=== PATIENT | female | born 1965 | race Caucasian/White ===

== ENCOUNTER 2025-02-27 08:58 | Outpatient (CLI) | payer OTHER, SELFPAY ==
--- NOTE | 2025-02-27 | ECG_ITS ---
Test Date: 2025-02-27 09:53:48 Measurements Intervals [place] Rate: 66 P: 29 MT: 167 QRS: 0 QRSD: 89 T: 14 QT: 475 QTc: 498 Interpretive Statements SINUS RHYTHM PROLONGED QT INTERVAL No previous ECG available for comparison Electronically Signed On 02-27-2025 14:07:05 CDT by Gogo Cassidy M.D.
--- OUTSIDE RECORDS SUMMARY | 2025-02-27 09:27 | XMS_ITS | Encounter Summary ---
Author Organization [facility] Address [address] [place] [address] Care Team Providers Care Configuration Release Manager Name Role Phone Angus Elkins MD, Pradeep Ordoñez Primary Care Provider Encounter Details Date Type Department Care Team (Late st Contact Info) Description 12/25/2019 Lab Requisition [facility] [address] [place] [address] Babak Frank MD [address] [place] [address] Social History Tobacco Use Types Packs/Day Years Used Date Smoking Tobacco: Never Assessed Comments Unknown Sex and Gender Information Value Date Recorded Sex Assigned at Not on file Legal Sex Female 2:04 PM CAR SHAGGER Gender Identity Not on file Sexual Orientation Not on file documented as of this encounter Plan of Treatment Not on file documented as of this encounter Procedures Procedure Name Priority Date/Time Associated Diagnosis Comments DERMATOPATHOLOGY Routine 12/25/2019 12:0 0 AM CAR SHAGGER documented in this encounter Results * DERMATOPATHOLOGY (12/25/2019 12:00 AM CAR SHAGGER) Case Report Dermatopathology Report Case: [id number] Authorizing Provider: Babak Frank MD Collected: 12/25/2019 12:00 AM Ordering Location: [facility] Received: 12/25/2019 02:42 PM Pathologist: Jessica Parish MD Specimen: Skin, right upper arm 0 5:07 PM [facility] Final Diagnosis Specimen A. 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 Path# [id number] 0 5:07 PM [facility] Gross Description Specimen A: Received is one formalin filled container labeled with the patient's name and designated right upper arm. The specimen consists of a shave biopsy measuring 10x8x2 mm. Jar 0. 0 5:07 PM [facility] Microscopic Description Specimen A. SKIN, right upper arm: There is digitated epidermal hyperplasia, hypergranulosis, vacuolated granular layer cells, and compact hyperorthokeratosis . There is fibrosis of the papillary dermis associated with a superficial perivascular lymphohistiocytic infiltrate. A focal erosion is present. 0 5:07 PM [facility] Disclaimer An external and internal positive and negative controls are appropriate for the histochemical, immunohistochemical and immunofluorescence stain(s) in this case (if any), except where stated explicitly. The performance characteristics of the stain(s) cited in this report were developed and its performance characteristic determined by the Dermatopathology Laboratory at [facility], directed by Dr. Nahum Ogden. These tests need not be, and therefore are not, approved by the [place] Food and Drug Administration. The tests are used for clinical purposes. Billing Codes Specimen Charges Stain Charges 22591 1 0 5:07 PM [facility] Embedded Images 0 5:07 PM [facility] Pathology/Cytolog y TISSUE SPECIMEN FROM SKIN / Unknown 12/25/2019 12/25/2019 2:42 PM CAR SHAGGER us Babak Frank MD LAB - PATHOLOGY/CYTOLOGY ORDER DAX Final Result DERMATOPATHOLOGY LABORATORY [facility] - Department of Dermatology [address] [place] [address], [facility] [phone] documented in this encounter Visit Diagnoses Not on filedocumented in this encounter Additional Health Concerns Infection Onset Date Last Indicated Resolved Time COVID-19 Under Investigation 09/19/2021 09/19/2021 09/19/2021 12:01 PM CAR SHAGGER documented as of this encounter Care Teams Configuration Release Manager Relationship Specialty Start Date End Date Pradeep Greco Jr., MD [address] [place] [address] PCP - General 08/19/21 documented as of this encounter
--- OUTSIDE RECORDS SUMMARY | 2025-02-27 09:27 | XMS_ITS | Encounter Summary ---
Author Organization [facility] Address [address] [place] [address] Phone Care Team Providers Care Art History Instructor Name Role Phone Fransisco Clayton MD Unavailable [phone] Angus Elkins MD, Pradeep Donnelly Primary Care Provide r Jalen Bell MD Unavailable [phone] Encounter Details Date Type Department Care Team (Late st Contact Info) Description 01/29/2020 Orders Only [facility] Scanning, Provider Social History Tobacco Use Types Packs/Day Years Used Date Smoking Tobacco: Never Smokeless Tobacco: Never Alcohol Use Standard Drinks/Week Comments Not Currently 0 (1 standard drink = 0.6 oz pure alcohol) Previously dependent, last had a glass of champagne Thanksgiving 2018 PHQ-2 Answer Date Recorded PHQ-2 Score 1 10/10/2019 Comments No Sex and Gender Information Value Date Recorded Sex Assigned at Not on file Legal Sex Female 9:20 AM GLOBAL CREATIVE CHAIRMAN Gender Identity Not on file Sexual Orientation Not on file COVID-19 Exposure Response Date Recorded In the last month, have you been in contact with someone who was confirmed or suspected to have Coronavirus / COVID-19? No / Unsure 01/21/2020 3:30 PM CDT documented as of this encounter Plan of Treatment Not on file documented as of this encounter Procedures Procedure Name Priority Date/Time Associated Diagnosis Comments SCAN - LABS 01/29/2020 documented in this encounter Results * SCAN - LABS (01/29/2020) us Provider Scanning Final Result documented in this encounter Visit Diagnoses Not on filedocumented in this encounter Additional Health Concerns Infection Onset Date Last Indicated Resolved Time COVID: Suspected 10/01/2020 10/01/2020 10/01/2020 10:59 AM GLOBAL CREATIVE CHAIRMAN COVID: Suspected 10/01/2020 10/01/2020 10/02/2020 2:27 PM GLOBAL CREATIVE CHAIRMAN Respiratory Infection (DAGMAR), contact + droplet Comment:Automatically added due to negative COVID-19 result. 10/02/2020 10/02/2020 10/16/2020 3:0 7 AM GLOBAL CREATIVE CHAIRMAN C. difficile suspected 09/03/2024 09/10/202409/04 3:05 AM GLOBAL CREATIVE CHAIRMAN C. difficile suspected 09/10/2024 09/10/202409/10 7:56 PM GLOBAL CREATIVE CHAIRMAN documented as of this encounter Care Teams Art History Instructor Relationship Specialty Start Date End Date Pradeep Greco Jr., MD [address] [place] [address] PCP - General Internal Medicine 01/22/20 Fransisco Clayton MD [address] [place] [address] Consulting Physician Family Medicine 06/29/19 05/27/21 Jalen Bell MD [address] [place], [place] [address] Medical Oncologist/Senior Account Executive Hematology and Oncology 03/04/20 documented as of this encounter
--- OUTSIDE RECORDS SUMMARY | 2025-02-27 09:27 | XMS_ITS | Clinical Summary ---
Author Organization [facility] Address [address] [place] [address] Care Team Providers Care School Age Program Teacher Name Role Phone Angus Elkins MD, Pradeep Ordoñez Primary Care Provider Source Comments [facility],non-owned Affiliates and Associated Physician Practices is amultiple site organization consisting of ambulatory clinics and hospital sitesin [place], [place], [place] and [place]. This disclosure is being madepursuant to the Care Everywhere program and may not contain all information available regarding this patient. Last updated 18.[facility] Allergies Active Allergy Reactions Criticality Noted Date Comments Amitriptyline Other 07/19/2021 hallucinations Cefazolin Itching 07/21/2021 Nortriptyline Other 07/19/2021 hallucinations Sulfa Drugs Rash Medium 07/19/2021 Zolpidem Psychiatric High 12/01/2019 Medications * Be aware that medications may not be up to date on this document. Alwaysverify current medications with the patient. pantoprazole EC (PROTONIX) 40 MG tablet Take 1 (one) tablet by mouth 2 times daily Active magnesium oxide (MAG-OX) 400 MG tablet Take 1 (one) tablet by mouth 2 times daily Active Cyanocobalamin 1000 MCG Take 1 (one) tablet by mouth once daily Active calcium citrate 200 MG tablet Take 1 (one) tablet by mouth once daily Active B Complex Vitamins (B COMPLEX 1 PO) Take 1 tablet by mouth once daily Active Cholecalcifero l (VITAMIN D-3) 125 MCG (5000 UT) Take 1 (one) tablet by mouth once daily Active sertraline (ZOLOFT) 25 MG tabletIndicati ons:Generalize d Anxiety Disorder Take 1 (one) tablet by mouth once daily Reasons: Generalized Anxiety Disorder Active ALPRAZolam (XANAX) 0.5 MG tablet Take 1 (one) tablet by mouth 2 times daily as needed for Anxiety 28 tablet 1 Active ciprofloxacin (CIPRO) 500 MG tablet Take 1 (one) tablet by mouth once daily 30 tablet 1 Active lactulose (CHRONULAC) 10 GM/15ML solution Take 15 mL by mouth 3 times daily 1 Active nadolol (CORGARD) 20 MG tablet Take 0.5 (one-half) tablet by mouth once daily 0 1 Active XIFAXAN 550 MG tablet Take 1 (one) tablet by mouth 2 times daily 180 tablet 3 2 Active furosemide (LASIX) 40 MG tablet Take 1 (one) tablet by mouth at bedtime 90 tablet 3 2 Active spironolactone (ALDACTONE) 100 MG tablet Take 1 (one) tablet by mouth once daily 90 tablet 3 2 Active acetaminophen (Tylenol) 500 MG tablet Take 1 (one) tablet by mouth every 6 hours Maximum allowable Acetaminophen amount = 4 Grams (4000 mg) / 24 hours. 3 Active oxyCODONE, immediate release, (Roxicodone) 5 MG tabletIndicati ons:Closed fracture of right hip, sequela Take 1 (one) tablet by mouth every 4 hours as needed 20 tablet 3 Active cyclobenzaprin e (Flexeril) 10 MG tablet Take 1 (one) tablet by mouth 3 times daily as needed for Muscle Spasms 30 tablet 1 3 Active Additional Information Patient not taking.Reported on 06/15/2023 Active Problems Problem Noted Date Diagnosed Date Fall, sequela 04/04/2023 Closed fracture of right hip, sequela 04/04/2023 Liver cirrhosis secondary to SUAREZ 04/04/2023 Abdominal pain, generalized 09/18/2021 Urinary tract infection with hematuria 1 Fall 08/28/2021 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 (F LUZONE; FLULAVAL; FLUARIX; AFLURIA QUADRIVALENT; 6MO+), 0.5 ML (IIV4) 09/21/2021(Deferred: Patient Refused) Family History Medical History Relation Name Comments Diabetes; unknown type Father Seizures Mother Relation Name Status Comments Father Mother Social History Tobacco Use Types Packs/Day Years Used Date Smoking Tobacco: Never Smokeless Tobacco: Never Tobacco Cessation:Counseling Given: Not Answered Alcohol Use Standard Drinks/Week Comments Not Currently 0 (1 standard drink = 0.6 oz pur e alcohol) in past, quit 4 years ago AUDIT-C Answer Date Recorded Q1: How often do you have a drink containing alcohol? Never 04/05/2023 Q2: How many drinks containi ng alcohol do you have on a typical day when you are drinking? Patient does not drink Q3: How often do you have si x or more drinks on one occasion? Never 04/05/2023 Overall Financial Resource Strain (CARDIA) Answe r Date Recorded How hard is it for you to pa y for the very basics like food, housing, medical care, and heating? Not hard at all 04/05/2023 [facility] [place] [facility] Occupat ional Health - Occupational Stress Questionnaire Answer Date Recorded Do you feel stress - tense, restless, nervous, or anxious, or unable to sleep at night because your mind is troubled all the time - these days? Not at all 04/05/2023 Hunger Vital Sign Answer Date Recorded Within the past 12 months, y ou worried that your food would run out before you got the money to buy more. Never true 04/05/20 23 Within the past 12 months, t he food you bought just didn't last and you didn't have money to get more. Never true 04/05/2023 PRAPARE - Transportation Answer Date Re corded In the past 12 months, has l ack of transportation kept you from medical appointments or from getting medications? No 03/24 In the past 12 months, has l ack of transportation kept you from meetings, work, or from getting things needed for daily living? No 04/05/2023 Housing Stability Vital Sign Answer Jean-Paul e Recorded In the last 12 months, was t here a time when you were not able to pay the mortgage or rent on time? No 04/05/2023 In the last 12 months, how many places have you lived? 1 04/05/2023 In the last 12 months, was t here a time when you did not have a steady place to sleep or slept in a fpc (including now)? No 04/05/2023 Comments No Sex and Gender Information Value Date Recorded Sex Assigned at Not on file Legal Sex Female 2:04 PM HAZARDOUS MATERIALS HANDLER Gender Identity Not on file Sexual Orientation Not on file Last Filed Vital Signs Vital Sign Reading Time Taken Comments Blood Pressure 96/60 04/12/2023 2:54 PM CDT Pulse 78 04/12/2023 2:54 PM CDT Temperature 36.2 C (97.2 F) 04/12/2023 2:54 PM CDT Respiratory Rate 16 04/12/2023 2:54 PM CDT Oxygen Saturation 98% 04/12/2023 2:54 PM CDT Inhaled Oxygen Concentration 40% 04/05/2023 4 :25 PM CDT Weight 74.8 kg (165 lb) 07/27/2023 11:28 AM CDT Height 177.8 cm (5' 10 ) 07/27/2023 11:28 AM CDT Body Mass Index 23.68 07/27/2023 11:28 AM CDT Plan of Treatment Health Maintenance Due Date Last Done Comments COLOGUARD (AGES 45-75) - COLON CA SCREENING [address] COLONOGRAPHY - COLON CA SCREENING 1965 FIT - COLON CA SCREENING 1965 FLEX SIG - COLON CA SCREENING 1965 PAP SMEAR 1965 DTAP/TDAP/TD VACCINES (1 - Tdap) 1984 HEPATITIS B VACCINE (1 of 3 - 19+ 3-dose series) 1984 PNEUMOCOCCAL VACCINE 50+ (1 of 2 - PCV) 1984 ZOSTER VACCINE (1 of 2) 2015 COVID-19 VACCINE ( season) 2024 DEPRESSION SCREENING 10/24/2024 MAMMOGRAM 05/09/2025 05/09/2023, 12/22, 12/02/2019, Additional history exists INFLUENZA VACCINE (Season Ended) 2025 08/24/2022 LIPID TESTING 12/22/2026 12/22/2021 COLONOSCOPY - COLON CA SCREENING 07/03/2031 07/03/2021 Colorectal Cancer Screening 07/03/2031 HEPATITIS C SCREENING Completed 07/22/2021 HIV SCREENING Completed 07/22/2021 HIB VACCINE Aged Out No longer eligi ble based on patient's age to complete this topic HPV VACCINE Aged Out No longer eligi ble based on patient's age to complete this topic MENINGOCOCCAL (Group B) VACCINE SHARED DECISION-MAKING Aged Out No longer eligible based on patient's age to complete this topic MENINGOCOCCAL GROUPS A/C/Y/W VACCINE Aged Out No longer eligible based on patient's age to complete this topic Goals Goal Patient Goal Type Associated Problems Recent Progress Patient-Stated? Author Medication Management General On track( 022 12:42 PM HAZARDOUS MATERIALS HANDLER) No Chastity Black RN Note: Expected end date: Ongoing Interventions: Take all medications as prescribed Let your doctor know right away about any changes in your medications Make sure to request a refill of your medication at least one week prior to your last dose Mobility General No Vy Leblanc RN Note: Expected end date: The goal is to maintain or improve your mobility at the optimum level for you. Interventions: Outpatient PT ordered for ROM and strengthening;WBAT LLE. Medical Devices Implanted Type Area Fur Finisher Seamstress Device Identifier Shelf Expiration Date Model / Serial / Lot Pin Hlf 30mm 5mm Jtx Shrt Ti Ntrd Unlat Implanted:Qty: 3 on 07/20/2021 by Claus Martel MD at [facility] Left: Tibia [employer] [id number] / / 5mm X 35mm Short Pin Implanted:Qty: 1 on 07/20/2021 by Claus Martel MD at [facility] Left: Tibia [id number] / / Lateral Distal Fib Plate 3.5mm Implanted:Qty: 1 on 07/30/2021 by Claus Martel MD at [facility] Left: Leg [employer] [id number] / / Sub Bngf Ostst Xr Pelt Injector 5cc Implanted:Qty: 1 on 07/30/2021 by Claus Martel MD at [facility] Left: Leg [employer] 06/17/2028 [id number] / / [id number] Plate 3 Hl Lck Lopro Dist Blt Tip Tib Lt Implanted:Qty: 1 on 07/30/2021 by Claus Martel MD at [facility] Left: Leg [employer] [id number] / / Screw 3.5mm 42mm Ft Slf-Tap Hex Lopro Implanted:Qty: 1 on 07/30/2021 by Claus Martel MD at [facility] Left: Leg [employer] [id number] / / Screw 3.5mm 70mm T15 Lck Slf-Tap Tip Tpr Implanted:Qty: 5 on 07/30/2021 by Claus Martel MD at [facility] Left: Leg [employer] [id number] / / Screw 3.5mm 75mm 2.2mm Mldir Lck Sq Drv Implanted:Qty: 1 on 07/30/2021 by Claus Martel MD at [facility] Left: Leg [employer] [id number] / / Screw 3.5mm 46mm T15 Slf-Tap Lck Tpr Implanted:Qty: 1 on 07/30/2021 by Claus Martel MD at [facility] Left: Leg [employer] [id number] / / Screw 3.5mm 42mm Slf-Tap Cortx Evos Strl Implanted:Qty: 1 on 07/30/2021 by Claus Martel MD at [facility] Left: Leg [employer] [id number] / / Screw 3.5mm 40mm Slf-Tap Cortx Evos Strl Implanted:Qty: 1 on 07/30/2021 by Claus Martel MD at [facility] Left: Leg [employer] [id number] / / Screw 3.5mm 48mm Slf-Tap Cortx Evos Strl Implanted:Qty: 1 on 07/30/2021 by Claus Martel MD at [facility] Left: Leg [employer] [id number] / / 4.7 Locking Implanted:Qty: 1 on 07/30/2021 by Claus Martel MD at [facility] Left: Leg [employer] [id number] / / Intertan 10s 10mm X 18 Implanted:Qty: 1 on 08/28/2021 by Claus Kelly MD at [facility] Left: Femur [employer] 02/14/2031 [id number] / / Kit Screw 105mm 4.5mm Intrtn Troch Ti Implanted:Qty: 1 on 08/28/2021 by Claus Kelly MD at [facility] Left: Femur [employer] 11/10/2030 [id number] / / [id number] Screw 5mm 30mm Lopro Intnl Hex Fem Trgn Implanted:Qty: 1 on 08/28/2021 by Claus Kelly MD at [facility] Left: Femur [employer] 06/09/2031 [id number] / / [id number] Hip Stem Implanted:Qty: 1 on 04/05/2023 by Claus Martel MD at [facility] Right: Hip [employer] [id number] / / Neck Adjustment Sleeve Implanted:Qty: 1 on 04/05/2023 by Claus Martel MD at [facility] Right: Hip [employer] [id number] / / Head Compnent Implanted:Qty: 1 on 04/05/2023 by Claus Martel MD at [facility] Right: Hip [employer] [id number] / / Explanted Type Area Fur Finisher Seamstress Device Identifier Shelf Expiration Date Model / Serial / Lot Wire K 1.6mm 6in Hlf Bynt Pnt Ss Fx Explanted:Qty: 4 on 07/30/2021 by Claus Martel MD at [facility] Left: Leg [employer] [id number] / / Screw 3.5mm 40mm Ft Slf-Tap Hex Lopro Explanted:Qty: 1 on 07/30/2021 at [facility] Left: Leg [employer] [id number] / / Screw 3.5mm 48mm Slf-Tap Cortx Evos Strl Explanted:Qty: 1 on 07/30/2021 at [facility] Left: Leg [employer] [id number] / / Wire K 2mm 150mm Troc Pnt Ss Fx Strl Explanted:Qty: 1 on 07/30/2021 at [facility] Left: Leg [employer] [id number] / / Wire K 1.6mm 150mm Troc Pnt Ss Fx Strl Explanted:Qty: 1 on 07/30/2021 at [facility] Left: Leg [employer] [id number] / / Procedures Procedure Name Priority Date/Time Associated Diagnosis Comments HEPATITIS C AB SCREEN RFLX NAAT QUANT Routine 07/22/2021 11:40 AM CDT HIV-1 HIV-2 ANTIBODY + HIV P24 AG PANEL Routine 07/22/2021 11:40 AM CDT from Last 3 Months or Most Recently Relevant to Health Maintenance Results * HEPATITIS C AB SCREEN RFLX NAAT QUANT (07/22/2021 11:40 AM CDT) Hepatitis C Antibody Non-react diego Non-reac tive 07/22/2021 1:[address] [facility] Comment:Hepatitis C Antibody screen indicates no serologic evidence of past or current infection with Hepatitis C Virus. Patients with unexplained liver disease who are immunocompromised or suspected of having acute Hepatitis C infection may benefit from Nucleic Acid Test (SHAWN) for Hepatitis C Viral RNA to confirm Hepatitis C status. Blood BLOOD SPECIMEN / Unknown Lab Venipuncture / Unknown 07/22/2021 11:40 AM CDT 07/22/2021 11:43 AM CDT Anastasia Avila PA-C LAB - CHEMISTRY ORDERABLES Final Result Performing Organization Address City/[facility]/ZIP Co de Phone Number [address] [address], [place] [phone] * HIV-1 HIV-2 ANTIBODY + HIV P24 AG PANEL (07/22/2021 11:40 AM CDT) HIV Antigen/Antibod y 1 & 2 Non-reacti ve Non-react diego 07/22/2021 1:23 PM CDT [facility] Comment:Neither HIV-1 p24 An tigen nor HIV-1/HIV-2 Antibodies are detected. Blood BLOOD SPECIMEN / Unknown Lab Venipuncture / Unknown 07/22/2021 11:40 AM CDT 07/22/2021 11:43 AM CDT Anastasia Avila PA-C LAB - CHEMISTRY ORDERABLES Final Result Performing Organization Address City/[facility] Co de Phone Number [address] [address], [place] [phone] from Last 3 Months or Most Recently Relevant to Health Maintenance Insurance WORKERS COMP Advance Directives * Full Code (Latest Code Status on File) Date Activated Date Inactivated Comments 04/04/2023 8:58 PM 04/12/2023 8:00 PM * Full Code Date Activated Date Inactivated Comments 09/25/2021 1:45 AM 09/28/2021 4:48 PM * Full Code Date Activated Date Inactivated Comments 09/18/2021 11:12 PM 09/24/2021 5:33 PM * Full Code Date Activated Date Inactivated Comments 07/20/2021 12:28 AM 08/01/2021 3:00 PM Care Teams School Age Program Teacher Relationship Specialty Start Date End Date Pradeep Greco Jr., MD [address] [place] [address] PCP - General 08/19/21
--- OUTSIDE RECORDS SUMMARY | 2025-02-27 09:27 | XMS_ITS | Encounter Summary ---
Author Organization [facility] Facility Care Team Providers Care Operations Supervisor 2Nd Shift Name Role Phone Yolande Mckeon Primary Care Provider [phone] Fransisco Clayton MD Unavailable + [phone] Angus Elkins MD, Pradeep Donnelly Primary Care Provide r Jalen Bell MD Unavailable [phone] Encounter Details Date Type Department Care Team (Latest Contact Info) Description 11/09/2016 Orders Only [facility] CLINCONV ProviderLu MD [address] [place] [address] Social History Tobacco Use Types Packs/Day Years Used Date Smoking Tobacco: Never Assessed Comments Unknown Sex and Gender Information Value Date Recorded Sex Assigned at Not on file Legal Sex Female 9:20 AM FABRICATION TECHNICIAN Gender Identity Not on file Sexual Orientation Not on file documented as of this encounter Plan of Treatment Not on file documented as of this encounter Procedures Procedure Name Priority Date/Time Associated Diagnosis Comments COLONOSCOPY - SCAN 11/09/2016 12 :00 AM FABRICATION TECHNICIAN documented in this encounter Results * COLONOSCOPY - SCAN (11/09/2016 12:00 AM FABRICATION TECHNICIAN) Narrative 11/09/2016 12:00 AM FABRICATION TECHNICIAN Ordered by an unspecified provider. us Historical Provider Final Res ult documented in this encounter Visit Diagnoses Not on filedocumented in this encounter Additional Health Concerns Infection Onset Date Last Indicated Resolved Time COVID: Suspected 10/01/2020 10/01/2020 10/01/2020 10:59 AM FABRICATION TECHNICIAN COVID: Suspected 10/01/2020 10/01/2020 10/02/2020 2:27 PM FABRICATION TECHNICIAN Respiratory Infection (DAGMAR), contact + droplet Comment:Automatically added due to negative COVID-19 result. 10/02/2020 10/02/2020 10/16/2020 3:0 7 AM FABRICATION TECHNICIAN C. difficile suspected 09/03/2024 09/10/202409/04 3:05 AM FABRICATION TECHNICIAN C. difficile suspected 09/10/2024 09/10/202409/10 7:56 PM FABRICATION TECHNICIAN documented as of this encounter Care Teams Operations Supervisor 2Nd Shift Relationship Specialty Start Date End Date Yolande Mckeon PA [address] [place] [address] PCP - General 01/06/17 01/21/20 Pradeep Greco Jr., MD [address] [place] [address] PCP - General Internal Medicine 01/22/20 Fransisco Clayton MD [address] [place] [address] Consulting Physician Family Medicine 06/29/19 05/27/21 Jalen Bell MD [address] [place] [address] Medical Oncologist/Executive Vp Hematology and Oncology 03/04/20 documented as of this encounter
--- OUTSIDE RECORDS SUMMARY | 2025-02-27 09:27 | XMS_ITS | Clinical Summary ---
Author Organization [facility] Address [address] [place] [address] Care Team Providers Care Digital Music Instructor Name Role Phone Angus Elkins MD, Pradeep Martino Primary Care Pro vider Allergies Active Allergy Reactions Criticality Noted Date Comments Zolpidem Hallucinations High 12/01/2019 Amitriptyline Hallucinations Medium 10/02/2019 Nortriptyline Hallucinations High 01/31/2019 Hallucinations Sulfa Antibiotics Hives,Other (see comment),Rash Medium 01/26/2016 Reaction: HIVES;, Medications ALPRAZolam 1 MG tablet Take 1 mg by mouth 2 (two) times daily as needed. Active furosemide 40 MG tablet Take 40 mg by mouth 2 (two) times daily. 80 mg in am 40 mg at hs Active magnesium oxide 400 (241.3 Mg) MG tablet Take 400 mg by mouth 2 (two) times daily. Active nadolol 20 MG tablet Take 10 mg by mouth daily. Active pantoprazole EC 40 MG tablet Take 40 mg by mouth 2 (two) times a day. Active potassium chloride CR 20 MEQ tablet Take 20 mEq by mouth daily. Active spironolactone 100 MG tablet Take 100 mg by mouth daily. Active vitamin B-12 (CYANOCOBALAMIN) 1000 mcg tablet Take 1,000 mcg by mouth daily. Active Cholecalciferol (VITAMIN D3) 50 MCG (2000 UT) Tab Take 1 tablet by mouth daily. Active Calcium Carbonate (CALCIUM 500 OR) Take 600 mg by mouth daily. Active Probiotic Product (ALIGN OR) Take 1 tablet by mouth daily. Active oxyCODONE-acetam inophen (PERCOCET) 5-325 MG tabletIndication s:Acute Pain < 3 Day Supply Take 1 tablet by mouth every 6 (six) hours as needed for Pain. Indications : Acute Pain < 3 Day Supply 10 tablet 08/11/2021 Active sertraline (ZOLOFT) 50 MG tablet 10/24/2023 Active traMADol (ULTRAM) 50 MG tabletIndication s:Acute Pain < 7 Day Supply Take 1 tablet (50 mg total) by mouth 2 (two) times daily as needed for Pain. Indications : Acute Pain < 7 Day Supply 14 tablet 02/25/2024 Active Active Problems Problem Noted Date Diagnosed Date GI bleed 12/02/2019 Anemia 12/01/2019 Heart murmur 11/26/2019 Overview (12/01/2019): Last Assessment & Plan: Referral to cardio. Need echo. Change in heart murmur BMI 28.0-28.9,adult 10/29/2019 Overview (12/01/2019): Last Assessment & Plan: Educated patient on healthy diet/exercise plan. Exercise 150min-300min per week of moderate intensity. Diet: good, healthy protein (eggs, nuts, peanut butter, chicken, fish, turkey, less pork/beef), lots of vegetables, less carbohydrates and less sugar. Long QT syndrome 10/22/2019 Overview (12/01/2019): Last Assessment & Plan: Referral cardio Decompensated hepatic cirrhosis (CMS/HCC [facility]/HCC ) 10/19/2019 Overview (12/01/2019): Last Assessment & Plan: Repeat labs today. Updated meds list reviewed with pt. Low sodium diet. History of palpitations 10/19/2019 Overview (12/01/2019): Last Assessment & Plan: chart hx of AFib but patient unfamiliar with this term - telemetry monitoring while here - continue metop XL 25mg CAROLYNE (obstructive sleep apnea) 10/19/2019 Overview (12/01/2019): Last Assessment & Plan: CPAP - does not known home settings Hypoalbuminemia 10/10/2019 Insomnia due to other mental disorder 01/05/2019 Iron deficiency anemia 01/05/2019 Overview (12/01/2019): Last Assessment & Plan: Recheck labs Varices, esophageal ([facility]) 01/30/2018 Vitamin D deficiency 10/07/2017 Alcohol dependence in remission ([facility] ) 08/01/2017 Overview (12/01/2019): Last Assessment & Plan: Counseled pt again she needs to avoid all alcohol. Irritable bowel syndrome with constipation 08/01 Overview (12/01/2019): Last Assessment & Plan: I suspect this is the cause of her abdominal complaints. Trial of amitriptyline 25 mg q.h.s.. She previously had hallucinations while on nortriptyline. If the symptoms recur, she will call the office for additional recommendations. I encouraged her to use MiraLax intermittently for constipation. There is no evidence of bowel obstruction. Depression, major, recurrent, moderate 7 Overview (12/01/2019): Last Assessment & Plan: Improved. Generalized anxiety disorder 03/26/2016 Overview (12/01/2019): Last Assessment & Plan: Home regimen: xanax 1mg po BID PRN with klonopin 1mg po qpm for insomnia and panic attacks (which she reports are frequent at night time). Buproprion 75mg po qpm - hepatically dose xanax to 0.25mg po BID PRN for short acting relief, dc klonopin 1mg po qpm (contraindicated) - will order lorazepam 0.5mg po qpm PRN insomnia/panic attack - consolidate this regimen as patient tolerates - buproprion 75mg qpm Hyponatremia 03/26/2016 Overview (12/01/2019): Last Assessment & Plan: 2/2 hypervolemia from cirrhosis - fluid restrict 1.5L, 2gm sodium restriction Nonalcoholic steatohepatitis (SUAREZ) 01/26/2016 Overview (12/01/2019): Last Assessment & Plan: F/u with dr barrios Panic attack 01/26/2016 Alcoholic cirrhosis of liver with ascites (CMS/H CC [facility]) 01/23/2016 Overview (12/01/2019): Last Assessment & Plan: Continue to avoid all alcohol. F/u with Dr. Barrios treated in ED with Large Volume paracentesis 4 L Last Assessment & Plan: Improved, continue to monitor Asthma ([facility]) 01/23/2016 Essential hypertension 01/23/2016 Overview (12/01/2019): Last Assessment & Plan: B/p still low, will continue to monitor. Referral cardiology for change in heart murmur Portal hypertension ([facility]) 01/23/2016 Overview (12/01/2019): Last Assessment & Plan: Referral cardio Family History Medical History Relation Comments Heart Disease Father Breast Cancer Mother Cancer Mother Heart Disease Mother Anemia Neg Hx Relation Status Comments Father Mother Alive Social History Tobacco Use Types Packs/Day Years Used Date Smoking Tobacco: Never Passive Smoke Exposure: Never Smokeless Tobacco: Never Tobacco Cessation:Counseling Given: Not Answered Alcohol Use Standard Drinks/Week Comments Not Currently 0 (1 standard drink = 0.6 oz pure alcohol) never was a big drinker , h/o alcoholic cirrhosis AUDIT-C Answer Date Recorded Frequency of Alcohol Consumption Never 12/01/2019 Average Number of Drinks Not on file 020 Frequency of Binge Drinking Not on file 05/2020 Exercise Vital Sign Answer Date Recorde d Days of Exercise per Week 0 days 2019 Minutes of Exercise per Session Not asked 12/01/2019 Comments No Sex and Gender Information Value Date Recorded Sex Assigned at Not on file Legal Sex Female 7:10 PM CDT Gender Identity Not on file Sexual Orientation Not on file Last Filed Vital Signs Vital Sign Reading Time Taken Comments Blood Pressure 110/57 02/25/2024 6:56 PM CDT Pulse 67 02/25/2024 6:56 PM CDT Temperature 36.3 C (97.4 F) 02/25/2024 6:56 PM CDT Respiratory Rate 20 02/25/2024 6:56 PM CDT Oxygen Saturation 100% 02/25/2024 6:56 PM CDT Inhaled Oxygen Concentration - - Weight 81.6 kg (180 lb) 02/25/2024 6:56 PM CDT Height 177.8 cm (5' 10 ) 02/25/2024 6:56 PM CDT Body Mass Index 25.83 02/25/2024 6:56 PM CDT Plan of Treatment Health Maintenance Due Date Last Done Comments Cervical Cancer Screening Pa p Smear (Age 30 to 64) Every 3 Years 1965 Colorectal Cancer Screening Colonoscopy (10 Years) 1965 Annual Physical 1968 Pneumococcal Vaccine: 50+ Years (1 of 2 - PCV) 1984 Cervical Cancer Screening Pa p with HPV Testing (Age 30 to 64) Every 5 Years 1995 Cervical Cancer Screening with HPV 1995 Mammogram Screening 2005 Zoster Vaccines (1 of 2) 2015 COVID-19 Vaccine (1 - 2023-2 5 season) 2024 PHQ-2 (Physician [place]) 10/24/2024 DTaP, Tdap and Td Vaccines ( 3 - Td or Tdap) 12/28/2033 12/29/2023, 03/27/2016 Colorectal Cancer Screening FIT/FOBT (1 Year) Discontinued 12/01/2019 Hepatitis C Completed 07/22/2021 Meningococcal B Vaccine Aged Out No l onger eligible based on patient's age to complete this topic Meningococcal Vaccine Aged Out No manisha dino eligible based on patient's age to complete this topic RSV Immunizations Under 20 Months Aged Out No longer eligible based on patient's age to complete this topic Procedures Procedure Name Priority Date/Time Associated Diagnosis Comments OCCULT BLOOD, FECES STAT 12/01/2019 8 :38 PM UKE DRIVER from Last 3 Months or Most Recently Relevant to Health Maintenance Results * OCCULT BLOOD, FECES (12/01/2019 8:38 PM UKE DRIVER) OCCULT BLOOD FECAL POSITIVE 12/01/2019 8:51 PM UKE DRIVER [facility] STOOL SPECIMEN / Unknown 12/01/2019 8:38 PM UKE DRIVER Liu Blancas PA-C BODY FLUIDS AND STOOLS CRISPIN MUNSON Final Result [facility] [address] [place] [address], [place] [phone] from Last 3 Months or Most Recently Relevant to Health Maintenance Insurance Advance Directives * Full Code (Latest Code Status on File) Date Activated Date Inactivated Comments 12/01/2019 8:42 PM 12/03/2019 12:01 AM Care Teams Digital Music Instructor Relationship Specialty Start Date End Date Pradeep Greco Jr., MD PCP - General HOSPITALIST 09/17/20
--- OUTSIDE RECORDS SUMMARY | 2025-02-27 09:27 | XMS_ITS | Encounter Summary ---
Author Organization [facility] Facility Care Team Providers Care Dry Mop Maker Name Role Phone Yolande Mckeon Primary Care Provider [phone] Fransisco Clayton MD Unavailable + [phone] Angus Elkins MD, Pradeep Donnelly Primary Care Provide r Jalen Bell MD Unavailable [phone] Encounter Details Date Type Department Care Team (Latest Contact Info) Description 05/23/2017 Orders Only [facility] CLINCONV Provider, MD Lu [address] [place] [address] Social History Tobacco Use Types Packs/Day Years Used Date Smoking Tobacco: Never Assessed Comments Unknown Sex and Gender Information Value Date Recorded Sex Assigned at Not on file Legal Sex Female 9:20 AM MAINTENANCE INSPECTOR Gender Identity Not on file Sexual Orientation Not on file documented as of this encounter Plan of Treatment Not on file documented as of this encounter Procedures Procedure Name Priority Date/Time Associated Diagnosis Comments SCAN - LABS 05/23/2017 12:00 AM CDT documented in this encounter Results * SCAN - LABS (05/23/2017 12:00 AM CDT) Narrative 05/23/2017 12:00 AM CDT Ordered by an unspecified provider. us Historical Provider Final Res ult documented in this encounter Visit Diagnoses Not on filedocumented in this encounter Additional Health Concerns Infection Onset Date Last Indicated Resolved Time COVID: Suspected 10/01/2020 10/01/2020 10/01/2020 10:59 AM MAINTENANCE INSPECTOR COVID: Suspected 10/01/2020 10/01/2020 10/02/2020 2:27 PM MAINTENANCE INSPECTOR Respiratory Infection (DAGMAR), contact + droplet Comment:Automatically added due to negative COVID-19 result. 10/02/2020 10/02/2020 10/16/2020 3:0 7 AM MAINTENANCE INSPECTOR C. difficile suspected 09/03/2024 09/10/202409/04 3:05 AM MAINTENANCE INSPECTOR C. difficile suspected 09/10/2024 09/10/202409/10 7:56 PM MAINTENANCE INSPECTOR documented as of this encounter Care Teams Dry Mop Maker Relationship Specialty Start Date End Date Yolande Mckeon PA [address] [place] [address] PCP - General 01/06/17 01/21/20 Pradeep Greco Jr., MD [address] [place] [address] PCP - General Internal Medicine 01/22/20 Fransisco Clayton MD [address] [place] [address] Consulting Physician Family Medicine 06/29/19 05/27/21 Jalen Bell MD [address] [place] [address] Medical Oncologist/Spindle Sander Hematology and Oncology 03/04/20 documented as of this encounter
--- OUTSIDE RECORDS SUMMARY | 2025-02-27 09:27 | XMS_ITS | Encounter Summary ---
Author Organization [facility] Facility Care Team Providers Care Land Acquisition Manager Name Role Phone Yolande Mckeon Primary Care Provider [phone] Fransisco Clayton MD Unavailable + [phone] Angus Elkins MD, rPadeep Donnelly Primary Care Provide r Jalen Bell MD Unavailable [phone] Encounter Details Date Type Department Care Team (Latest Contact Info) Description 03/12/2016 Orders Only [facility] CLINCONV ProviderLu MD [address] [place] [address] Social History Tobacco Use Types Packs/Day Years Used Date Smoking Tobacco: Never Assessed Comments Unknown Sex and Gender Information Value Date Recorded Sex Assigned at Not on file Legal Sex Female 9:20 AM INNER DIAMETER GRINDER TOOL Gender Identity Not on file Sexual Orientation Not on file documented as of this encounter Plan of Treatment Not on file documented as of this encounter Procedures Procedure Name Priority Date/Time Associated Diagnosis Comments SCAN - LABS 03/12/2016 12:00 AM CDT SCAN - LABS 03/12/2016 12:00 AM CDT documented in this encounter Results * SCAN - LABS (03/12/2016 12:00 AM CDT) Narrative 03/12/2016 12:00 AM CDT Ordered by an unspecified provider. Historical Provider Final Res ult * SCAN - LABS (03/12/2016 12:00 AM CDT) Narrative 03/12/2016 12:00 AM CDT Ordered by an unspecified provider. Historical Provider Final Res ult documented in this encounter Visit Diagnoses Not on filedocumented in this encounter Additional Health Concerns Infection Onset Date Last Indicated Resolved Time COVID: Suspected 10/01/2020 10/01/2020 10/01/2020 10:59 AM INNER DIAMETER GRINDER TOOL COVID: Suspected 10/01/2020 10/01/2020 10/02/2020 2:27 PM INNER DIAMETER GRINDER TOOL Respiratory Infection (DAGMAR), contact + droplet Comment:Automatically added due to negative COVID-19 result. 10/02/2020 10/02/2020 10/16/2020 3:0 7 AM INNER DIAMETER GRINDER TOOL C. difficile suspected 09/03/2024 09/10/202409/04 3:05 AM INNER DIAMETER GRINDER TOOL C. difficile suspected 09/10/2024 09/10/202409/10 7:56 PM INNER DIAMETER GRINDER TOOL documented as of this encounter Care Teams Land Acquisition Manager Relationship Specialty Start Date End Date Yolande Mckeon PA [address] [place] [address] PCP - General 01/06/17 01/21/20 Pradeep Greco Jr., MD [address] [place], [place] [address] PCP - General Internal Medicine 01/22/20 Fransisco Clayton MD [address] [place], [place] [address] Consulting Physician Family Medicine 06/29/19 05/27/21 Jalen Bell MD [address] [place], [place] [address] Medical Oncologist/Family Medicine Chair Hematology and Oncology 03/04/20 documented as of this encounter
--- OUTSIDE RECORDS SUMMARY | 2025-02-27 09:27 | XMS_ITS | Encounter Summary ---
Author Organization [facility] Care Team Providers Care Laboratory Monitor Name Role Phone Yolande Mckeon Primary Care Provider [phone] Fransisco Clayton MD Unavailable + [phone] Angus Elkins MD, Pradeep Donnelly Primary Care Provide r Jalen Bell MD Unavailable [phone] Encounter Details Date Type Department Care Team (Latest Contact Info) Description 08/12/2017 Orders Only [facility] CLINCONV ProviderLu MD [address] [place] [address] Social History Tobacco Use Types Packs/Day Years Used Date Smoking Tobacco: Never Comments Unknown Sex and Gender Information Value Date Recorded Sex Assigned at Not on file Legal Sex Female 9:20 AM FIRE CONTROL TECHNICIAN G Gender Identity Not on file Sexual Orientation Not on file documented as of this encounter Plan of Treatment Not on file documented as of this encounter Procedures Procedure Name Priority Date/Time Associated Diagnosis Comments PROCEDURE - RESULT 08/12/2017 12 :00 AM CDT documented in this encounter Results * PROCEDURE - RESULT (08/12/2017 12:00 AM CDT) Narrative 08/12/2017 12:00 AM CDT Ordered by an unspecified provider. us Historical Provider Final Res ult documented in this encounter Visit Diagnoses Not on filedocumented in this encounter Additional Health Concerns Infection Onset Date Last Indicated Resolved Time COVID: Suspected 10/01/2020 10/01/2020 10/01/2020 10:59 AM FIRE CONTROL TECHNICIAN G COVID: Suspected 10/01/2020 10/01/2020 10/02/2020 2:27 PM FIRE CONTROL TECHNICIAN G Respiratory Infection (DAGMAR), contact + droplet Comment:Automatically added due to negative COVID-19 result. 10/02/2020 10/02/2020 10/16/2020 3:0 7 AM FIRE CONTROL TECHNICIAN G C. difficile suspected 09/03/2024 09/10/202409/04 3:05 AM FIRE CONTROL TECHNICIAN G C. difficile suspected 09/10/2024 09/10/202409/10 7:56 PM FIRE CONTROL TECHNICIAN G documented as of this encounter Care Teams Laboratory Monitor Relationship Specialty Start Date End Date Yolande Mckeon PA [address] [place] [address] PCP - General 01/06/17 01/21/20 Pradeep Greco Jr., MD [address] [place] [address] PCP - General Internal Medicine 01/22/20 Fransisco Clayton MD [address] [place] [address] Consulting Physician Family Medicine 06/29/19 05/27/21 Jalen Bell MD [address] [place] [address] Medical Oncologist/Material Attendant Hematology and Oncology 03/04/20 documented as of this encounter
--- OUTSIDE RECORDS SUMMARY | 2025-02-27 09:27 | XMS_ITS | Encounter Summary ---
Author Organization [facility] Address [address] [place] [address] Care Team Providers Care Toolroom Checker Name Role Phone Angus Elkins MD, Pradeep Martino Primary Care Pro vider Encounter Details Date Type Department Care Team (Late st Contact Info) Description 09/17/2020 Prep for Procedure [facility] Pre-Admission Testing [address] [place] [address] Senthil Otoole MD [address] [place] [id number] Social History Tobacco Use Types Packs/Day Years [...] have Coronavirus / COVID-19? No / Unsure 09/17/2020 9:29 AM NUCLEAR SCIENTIST documented as of this encounter Functional Status * RETIRED Are you deaf or do you have serious difficulty hearing Answer Date of Assessment Author Status No 12/01/2019 10:39 PM NUCLEAR SCIENTIST Acti ve * RETIRED Are you blind or do you have serious difficulty seeing, even when wearing glasses? Answer Date of Assessment Author Status No 12/01/2019 10:39 PM NUCLEAR SCIENTIST Acti ve * Do you have serious difficulty walking or climbing stairs? Answer Date of Assessment Author Status No 12/01/2019 10:39 PM NUCLEAR SCIENTIST Consuelo Wheatley R N Active * Do you have difficulty dressing or bathing? Answer Date of Assessment Author Status No 12/01/2019 10:39 PM NUCLEAR SCIENTIST Consuelo Wheatley R N Active * Because of a physical, mental, or emotional condition, do you have difficulty doing errands alone such as visiting a doctor's office or shopping? Answer Date of Assessment Author Status No 12/01/2019 10:39 PM NUCLEAR SCIENTIST Consuelo Wheatley R N Active documented as of this encounter Mental Status * Because of a physical, mental, or emotional condition, do you have serious difficulty concentrating, remembering, or making decisions? Answer Entry Date Author Status No 12/01/2019 10:39 PM NUCLEAR SCIENTIST Consuelo Wheatley R N Active documented in this encounter Plan of Treatment Not on file documented as of this encounter Results * PRE-SURGICAL/PRE-PROCEDURE CORONAVIRUS (COVID 19) (09/21/2020 9:05 AM NUCLEAR SCIENTIST) CORONAVIRUS SARS COV 2 PCR (RESP) NOT DETECTED NOT DETECTED 09/22/2020 3:01 PM NUCLEAR SCIENTIST [facility] Comment: A Not Detected (negative) test result for this test means that SARS- CoV-2 RNA was not present in the specimen above the limit of detection. A negative result does not rule out the possibility of COVID-19 and should not be used as the sole basis for treatment or patient management decisions. If COVID-19 is still suspected, based on exposure history together with other clinical findings, re-testing should be considered in consultation with public health authorities. Laboratory test results should always be considered in the context of clinical observations and epidemiological data in making a final diagnosis and patient management decisions. Please review the Fact Sheets and FDA authorized labeling available for health care providers and patients using the following websites: https://www.[email or web address]/home/Covid-19/HCP/NAAT/fact-sheet2 https://www.[employer]iModel/home/Covid-19/Patients/NAAT/ fact-sheet2 This test has been authorized by the FDA under an Emergency Use Authorization (EUA) for use by authorized laboratories. Due to the current public health emergency, [facility] is receiving a high volume of samples from a wide variety of swabs and media for COVID-19 testing. In order to serve patients during this public health crisis, samples from appropriate clinical sources are being tested. Negative test results derived from specimens received in non-commercially manufactured viral collection and transport media, or in media and sample collection kits not yet authorized by FDA for COVID-19 testing should be cautiously evaluated and the patient potentially subjected to extra precautions such as additional clinical monitoring, including collection of an additional specimen. Methodology: Nucleic Acid Amplification Test (NAAT) includes RT-PCR or TMA Additional information about COVID-19 can be found at the [facility] website: www.[employer].ResiModel/Covid19. Test performed at [facility] [address] [place] [address] Director: JASPAL PARKER DO,MPH FIRST TEST NO 09/21/2020 10:[address] [facility] EMPLOYED IN HEALTHCARE NO 09/21/2020 10:[address] [facility] SYMPTOMATIC DEFINED BY CDC NO 09/21/2020 10:[address] [facility] DATE OF SYMPTOM ONSET NO 09/21/2020 11:[address] [facility] HOSPITALIZATION STATUS NO 09/21/2020 10:[address] [facility] PATIENT IN ICU NO 09/21/2020 10:[address] [facility] RESIDENT OF [facility] NO 09/21/2020 10:[address] [facility] NOT 09/21/2020 10:[address] [facility] PATIENT'S RACE WHITE OR 09/21/2020 10:12 AM NUCLEAR SCIENTIST [facility] ETHNICITY NONHISPANIC 09/21/2020 10:12 AM NUCLEAR SCIENTIST [facility] SOURCE (QST) NASOPHARYNGEAL SWAB 09/21/2020 10:12 AM NUCLEAR SCIENTIST [facility] NASOPHARYNGEAL SWAB / Unknown 09/21/2020 9:05 AM NUCLEAR SCIENTIST us Senthil Otoole MD MICROBIOLOGY - GENERAL OR DERABLES Final Result [facility] [address] [place] [address], [facility] [id number] [place] [address], documented in this encounter Visit Diagnoses Diagnosis Preop examination- Primary Preoperative examination, unspecified documented in this encounter Additional Health Concerns Infection Onset Date Last Indicated Resolved Time COVID-19 Rule Out 09/21/2020 09/21/2020 09/22/2020 3:01 PM NUCLEAR SCIENTIST documented as of this encounter Care Teams Toolroom Checker Relationship Specialty Start Date End Date Pradeep Greco Jr., MD PCP - General HOSPITALIST 09/17/20 documented as of this encounter
--- OUTSIDE RECORDS SUMMARY | 2025-02-27 09:27 | XMS_ITS | Encounter Summary ---
Author Organization [facility] Facility Care Team Providers Care Noodle Press Operator Name Role Phone Yolande Mckeon Primary Care Provider [phone] Fransisco Clayton MD Unavailable + [phone] Angus Elkins MD, Pradeep Donnelly Primary Care Provide r Jalen Bell MD Unavailable [phone] Encounter Details Date Type Department Care Team (Latest Contact Info) Description 07/11/2018 Orders Only [facility]IN[facility] ProviderLu MD [address] [place] [address] Social History Tobacco Use Types Packs/Day Years Used Date Smoking Tobacco: Never Smokeless Tobacco: Never Alcohol Use Standard Drinks/Week Comments No 0 (1 standard drink = 0.6 oz pur e alcohol) Previously dependent Comments Unknown Sex and Gender Information Value Date Recorded Sex Assigned at Not on file Legal Sex Female 9:20 AM POWDER MONKEY Gender Identity Not on file Sexual Orientation Not on file documented as of this encounter Plan of Treatment Not on file documented as of this encounter Procedures Procedure Name Priority Date/Time Associated Diagnosis Comments COLONOSCOPY - SCAN 07/13/2018 12 :00 AM CDT documented in this encounter Results * COLONOSCOPY - SCAN (07/13/2018 12:00 AM CDT) Narrative 07/13/2018 12:00 AM CDT Ordered by an unspecified provider. us Historical Provider Final Res ult documented in this encounter Visit Diagnoses Not on filedocumented in this encounter Additional Health Concerns Infection Onset Date Last Indicated Resolved Time COVID: Suspected 10/01/2020 10/01/2020 10/01/2020 10:59 AM POWDER MONKEY COVID: Suspected 10/01/2020 10/01/2020 10/02/2020 2:27 PM POWDER MONKEY Respiratory Infection (DAGMAR), contact + droplet Comment:Automatically added due to negative COVID-19 result. 10/02/2020 10/02/2020 10/16/2020 3:0 7 AM POWDER MONKEY C. difficile suspected 09/03/2024 09/10/202409/04 3:05 AM POWDER MONKEY C. difficile suspected 09/10/2024 09/10/202409/10 7:56 PM POWDER MONKEY documented as of this encounter Care Teams Noodle Press Operator Relationship Specialty Start Date End Date Yolande Mckeon PA [address] [place] [address] PCP - General 01/06/17 01/21/20 Pradeep Greco Jr., MD [address] [place], [place] [address] PCP - General Internal Medicine 01/22/20 Fransisco Clayton MD [address] [place] [address] Consulting Physician Family Medicine 06/29/19 05/27/21 Jalen Bell MD [address] [place] [address] Medical Oncologist/Negative Spotter Hematology and Oncology 03/04/20 documented as of this encounter
--- OUTSIDE RECORDS SUMMARY | 2025-02-27 09:27 | XMS_ITS | Encounter Summary ---
Author Organization [facility] Facility Care Team Providers Care Pelt Inspector Name Role Phone Yolande Mckeon Primary Care Provider [phone] Fransisco Clayton MD Unavailable + [phone] Angus Elkins MD, Pradeep Donnelly Primary Care Provide r Jalen Bell MD Unavailable [phone] Encounter Details Date Type Department Care Team (Latest Contact Info) Description 04/21/2018 Orders Only [facility] CLINCONV ProviderLu MD [address] [place] [address] Social History Tobacco Use Types Packs/Day Years Used Date Smoking Tobacco: Never Comments Unknown Sex and Gender Information Value Date Recorded Sex Assigned at Not on file Legal Sex Female 9:20 AM HOURLY SHIFT Gender Identity Not on file Sexual Orientation Not on file documented as of this encounter Plan of Treatment Not on file documented as of this encounter Procedures Procedure Name Priority Date/Time Associated Diagnosis Comments SCAN - LABS 04/24/2018 12:00 AM CDT documented in this encounter Results * SCAN - LABS (04/24/2018 12:00 AM CDT) Narrative 04/24/2018 12:00 AM CDT Ordered by an unspecified provider. us Historical Provider Final Res ult documented in this encounter Visit Diagnoses Not on filedocumented in this encounter Additional Health Concerns Infection Onset Date Last Indicated Resolved Time COVID: Suspected 10/01/2020 10/01/2020 10/01/2020 10:59 AM HOURLY SHIFT COVID: Suspected 10/01/2020 10/01/2020 10/02/2020 2:27 PM HOURLY SHIFT Respiratory Infection (DAGMAR), contact + droplet Comment:Automatically added due to negative COVID-19 result. 10/02/2020 10/02/2020 10/16/2020 3:0 7 AM HOURLY SHIFT C. difficile suspected 09/03/2024 09/10/202409/04 3:05 AM HOURLY SHIFT C. difficile suspected 09/10/2024 09/10/202409/10 7:56 PM HOURLY SHIFT documented as of this encounter Care Teams Pelt Inspector Relationship Specialty Start Date End Date Yolande Mckeon PA [address] [place] [address] PCP - General 01/06/17 01/21/20 Pradeep Greco Jr., MD [address] [place] [address] PCP - General Internal Medicine 01/22/20 Fransisco Clayton MD [address] [place] [address] Consulting Physician Family Medicine 06/29/19 05/27/21 Jalen Bell MD [address] [place] [address] Medical Oncologist/Serology Technician Hematology and Oncology 03/04/20 documented as of this encounter
--- OUTSIDE RECORDS SUMMARY | 2025-02-27 09:27 | XMS_ITS | Encounter Summary ---
Author Organization [facility] Facility Care Team Providers Care Lay Out Machine Operator Name Role Phone Yolande Mckeon Primary Care Provider [phone] Fransisco Clayton MD Unavailable + [phone] Angus Elkins MD, Pradeep Donnelly Primary Care Provide r Jalen Bell MD Unavailable [phone] Encounter Details Date Type Department Care Team (Latest Contact Info) Description 02/09/2016 Orders Only [facility] CLINCONV Provider, MD Lu [address] [place] [address] Social History Tobacco Use Types Packs/Day Years Used Date Smoking Tobacco: Never Assessed Comments Unknown Sex and Gender Information Value Date Recorded Sex Assigned at Not on file Legal Sex Female 9:20 AM PRUNER Gender Identity Not on file Sexual Orientation Not on file documented as of this encounter Plan of Treatment Not on file documented as of this encounter Procedures Procedure Name Priority Date/Time Associated Diagnosis Comments SCAN - LABS 02/09/2016 12:00 AM CDT documented in this encounter Results * SCAN - LABS (02/09/2016 12:00 AM CDT) Narrative 02/09/2016 12:00 AM CDT Ordered by an unspecified provider. us Historical Provider Final Res ult documented in this encounter Visit Diagnoses Not on filedocumented in this encounter Additional Health Concerns Infection Onset Date Last Indicated Resolved Time COVID: Suspected 10/01/2020 10/01/2020 10/01/2020 10:59 AM PRUNER COVID: Suspected 10/01/2020 10/01/2020 10/02/2020 2:27 PM PRUNER Respiratory Infection (DAGMAR), contact + droplet Comment:Automatically added due to negative COVID-19 result. 10/02/2020 10/02/2020 10/16/2020 3:0 7 AM PRUNER C. difficile suspected 09/03/2024 09/10/202409/04 3:05 AM PRUNER C. difficile suspected 09/10/2024 09/10/202409/10 7:56 PM PRUNER documented as of this encounter Care Teams Lay Out Machine Operator Relationship Specialty Start Date End Date Yolande Mckeon PA [address] [place] [address] PCP - General 01/06/17 01/21/20 Pradeep Greco Jr., MD [address] [place] [address] PCP - General Internal Medicine 01/22/20 Fransisco Clayton MD [address] [place] [address] Consulting Physician Family Medicine 06/29/19 05/27/21 Jalen Bell MD [address] [place] [address] Medical Oncologist/Residential Appraiser Hematology and Oncology 03/04/20 documented as of this encounter
--- OUTSIDE RECORDS SUMMARY | 2025-02-27 09:27 | XMS_ITS | Encounter Summary ---
Author Organization [facility] Address [address] [place] [address] Phone Care Team Providers Care Outdoor Studies Professor Name Role Phone Fransisco Clayton MD Unavailable [phone] Angus Elkins MD, Pradeep Donnelly Primary Care Provide r Jalen Bell MD Unavailable [phone] Encounter Details Date Type Department Care Team (Late st Contact Info) Description 05/21/2020 Orders Only [facility] Scanning, Provider Social History Tobacco Use Types Packs/Day Years Used Date Smoking Tobacco: Never Smokeless Tobacco: Never Alcohol Use Standard Drinks/Week Comments Not Currently 0 (1 standard drink = 0.6 oz pure alcohol) Previously dependent, last had a glass of champagne Thanksgiving 2018 PHQ-2 Answer Date Recorded PHQ-2 Total Score (If total score is 3 or more points, staff should administer the PHQ-9) 0 04/21/2020 Comments No Sex and Gender Information Value Date Recorded Sex Assigned at Not on file Legal Sex Female 9:20 AM ENGINEER/CONDUCTOR Gender Identity Not on file Sexual Orientation Not on file documented as of this encounter Plan of Treatment Not on file documented as of this encounter Procedures Procedure Name Priority Date/Time Associated Diagnosis Comments SCAN - LABS 05/21/2020 documented in this encounter Results * SCAN - LABS (05/21/2020) us Provider Scanning Edited Result - Final documented in this encounter Visit Diagnoses Not on filedocumented in this encounter Additional Health Concerns Infection Onset Date Last Indicated Resolved Time COVID: Suspected 10/01/2020 10/01/2020 10/01/2020 10:59 AM ENGINEER/CONDUCTOR COVID: Suspected 10/01/2020 10/01/2020 10/02/2020 2:27 PM ENGINEER/CONDUCTOR Respiratory Infection (DAGMAR), contact + droplet Comment:Automatically added due to negative COVID-19 result. 10/02/2020 10/02/2020 10/16/2020 3:0 7 AM ENGINEER/CONDUCTOR C. difficile suspected 09/03/2024 09/10/202409/04 3:05 AM ENGINEER/CONDUCTOR C. difficile suspected 09/10/2024 09/10/202409/10 7:56 PM ENGINEER/CONDUCTOR documented as of this encounter Care Teams Outdoor Studies Professor Relationship Specialty Start Date End Date Pradeep Greco Jr., MD [address] [place] [address] PCP - General Internal Medicine 01/22/20 Fransisco Clayton MD [address] [place] [address] Consulting Physician Family Medicine 06/29/19 05/27/21 Jalen Bell MD [address] [place] [address] Medical Oncologist/Philatelic Consultant Hematology and Oncology 03/04/20 documented as of this encounter
--- OUTSIDE RECORDS SUMMARY | 2025-02-27 09:27 | XMS_ITS | Encounter Summary ---
Author Organization [facility] Facility Care Team Providers Care Sueding Machine Tender Name Role Phone Yolande Mckeon Primary Care Provider [phone] Fransisco Clayton MD Unavailable + [phone] Angus Elkins MD, Pradeep Donnelly Primary Care Provide r Jalen Bell MD Unavailable [phone] Encounter Details Date Type Department Care Team (Latest Contact Info) Description 01/05/2016 Orders Only [facility] CLINCONV Provider, MD Lu [address] [place] [address] Social History Tobacco Use Types Packs/Day Years Used Date Smoking Tobacco: Never Assessed Comments Unknown Sex and Gender Information Value Date Recorded Sex Assigned at Not on file Legal Sex Female 9:20 AM COMMANDER INTERNAL AFFAIRS Gender Identity Not on file Sexual Orientation Not on file documented as of this encounter Plan of Treatment Not on file documented as of this encounter Procedures Procedure Name Priority Date/Time Associated Diagnosis Comments SCAN - PATHOLOGY 01/05/2016 12:0 0 AM CDT documented in this encounter Results * SCAN - PATHOLOGY (01/05/2016 12:00 AM CDT) Narrative 01/05/2016 12:00 AM CDT Ordered by an unspecified provider. us Historical Provider Final Res ult documented in this encounter Visit Diagnoses Not on filedocumented in this encounter Additional Health Concerns Infection Onset Date Last Indicated Resolved Time COVID: Suspected 10/01/2020 10/01/2020 10/01/2020 10:59 AM COMMANDER INTERNAL AFFAIRS COVID: Suspected 10/01/2020 10/01/2020 10/02/2020 2:27 PM COMMANDER INTERNAL AFFAIRS Respiratory Infection (DAGMAR), contact + droplet Comment:Automatically added due to negative COVID-19 result. 10/02/2020 10/02/2020 10/16/2020 3:0 7 AM COMMANDER INTERNAL AFFAIRS C. difficile suspected 09/03/2024 09/10/202409/04 3:05 AM COMMANDER INTERNAL AFFAIRS C. difficile suspected 09/10/2024 09/10/202409/10 7:56 PM COMMANDER INTERNAL AFFAIRS documented as of this encounter Care Teams Sueding Machine Tender Relationship Specialty Start Date End Date Yolande Mckeon PA [address] [place] [address] PCP - General 01/06/17 01/21/20 Pradeep Greco Jr., MD [address] [place] [address] PCP - General Internal Medicine 01/22/20 Fransisco Clayton MD [address] [place] [address] Consulting Physician Family Medicine 06/29/19 05/27/21 Jalen Bell MD [address] [place] [address] Medical Oncologist/Typesetter Perforator Operator Hematology and Oncology 03/04/20 documented as of this encounter
--- OUTSIDE RECORDS SUMMARY | 2025-02-27 09:28 | XMS_ITS | Referral Summary ---
Author Organization [facility] Address [address] [place] [address] Care Team Providers Care Documentation Nurse Name Role Phone Angus Elkins MD, Pradeep Donnelly Primary Care Provide r Jalen Bell MD Unavailable [phone] Encounters Date Type Department Care Team Description 02/01/2025 9:05 AM CDT Lab [facility] [address] [place] [id number] Alcoholic cirrhosis of liver with ascites (HCC); Preventative health care; Pancytopenia (HCC) 02/01/2025 8:30 AM CDT Office Visit [facility] [address] [place] [address] [phone] Pradeep Greco Jr., MD Acute non-recurrent maxillary sinusitis (Primary Dx); Pancytopenia (HCC); Alcoholic cirrhosis of liver with ascites (HCC); Preventative health care; Depression, major, recurrent, moderate (HCC); Alcohol dependence in remission (HCC); Myelopathy (HCC); MARGAUX (generalized anxiety disorder); Iron deficiency anemia due to chronic blood loss; Health maintenance examination; Chronic, continuous use of opioids 12/30/2024 7:02 AM CDT - 12/30/2024 11:59 PM CDT Hospital Encounter [facility] MRI [address] [place] [address] Radiculopathy, lumbar region Discharge Disposition: Discharge to home or self care from Last 3 Months Allergies Active Allergy Reactions Criticality Noted Date Comments Amitriptyline Hallucinations Medium 10/02/2019 Nortriptyline Hallucinations High 01/31/2019 Hallucinations Sulfa (Sulfonamide Antibiotics) Other (See comments),Rash,Hives Medium 01/26/2016 Reaction: HIVES;, Reaction: HIVES;, Trazodone Other (See comments) Low 01/04/2022 Sleepwalking Zolpidem Hallucinations High 12/01/2019 Medications cyanocobalamin (Vitamin B-12) 1,000 mcg tabletIndications: Prevention of Vitamin B12 Deficiency Take 3 tablets (3,000 mcg total) by mouth every morning Active cholecalciferol, vitamin D3, (VITAMIN D3 ORAL) Take 2,000 Units by mouth every morning Active calcium carbonate-vitamin D3 (CALTRATE 600 + D) 1500 mg (600 mg elemental) -400 units per tabletIndications: Hypocalcemia Prevention Take 1 tablet by mouth daily before lunch Active vitamin b complex tabletIndications: Vitamin Deficiency Prevention Take 1 tablet by mouth daily before lunch Active diphenhydrAMINE (BENADRYL) 25 mg capsuleIndications :Seasonal allergies Take 1 tablet/capsule (25 mg total) by mouth nightly as needed for sleep or allergies 30 capsule 1 023 Active Additional Information Patient not taking.Reported on 02/01/2025 potassium chloride ER 20 mEq CR tabletIndications: Alcoholic cirrhosis of liver with ascites (HCC),Irritable bowel syndrome with constipation TAKE 1 TABLET DAILY 90 tablet 3 Active albuterol HFA (ProAir HFA) 90 mcg/actuation inhalerIndications :Seasonal allergies Inhale 2 puffs every 4 (four) hours as needed for wheezing or shortness of breath 3 each 4 Active guaiFENesin-codein e (GUAITUSS AC) liquid 100-10 mg/5 mLIndications:Bron chitis Take 5-10 mL by mouth every 4 (four) hours as needed for cough 120 mL Active Additional Information Patient not taking.Reported on 02/01/2025 ciprofloxacin (CIPRO) 500 mg tabletIndications: Irritable bowel syndrome with constipation TAKE 1 TABLET(500 MG) BY MOUTH DAILY 90 tablet 3 024 Active naloxone (NARCAN) 4 mg/actuation spray,non-aerosol Administer 1 spray into affected nostril(s) as needed for opioid reversal or respiratory depression Call 911. Administer a single spray in one nostril. Repeat every 3 minutes as needed if no or minimal response. 1 each 024 Active rifAXIMin (Xifaxan) 550 mg tabletIndications: Alcoholic cirrhosis of liver with ascites (HCC) Take 1 tablet (550 mg total) by mouth 2 (two) times a day 60 tablet 11 024 Active Additional Information Patient not taking.Reported on 02/01/2025 nadoloL (CORGARD) 20 mg tabletIndications: Essential hypertension TAKE ONE-HALF (1/2) TABLET DAILY 45 tablet 3 024 Active sertraline (ZOLOFT) 50 mg tabletIndications: Essential hypertension Take 1 tablet (50 mg total) by mouth daily 90 tablet 3 024 Active magnesium oxide (MAG-OX) 400 mg (241.3 mg elemental magnesium) tablet Take 1 tablet (400 mg total) by mouth 2 (two) times a day 200 tablet 1 024 Active benzonatate (TESSALON) 100 mg capsuleIndications :Cough Take 1 capsule (100 mg total) by mouth 3 (three) times a day as needed for cough 42 capsule Active Additional Information Patient not taking.Reported on 02/01/2025 fluticasone propionate (FLONASE) 50 mcg/actuation nasal spray Administer 2 sprays into each nostril daily 3 each 4 024 Active Additional Information Patient not taking.Reported on 02/01/2025 spironolactone (ALDACTONE) 100 mg tabletIndications: Ascites due to alcoholic cirrhosis (HCC) TAKE 1 TABLET EVERY MORNING 90 tablet [address] (PROTONIX) 40 mg EC tablet TAKE 1 TABLET DAILY 100 tablet 1 025 Active furosemide (LASIX) 40 mg tabletIndications: Nonalcoholic steatohepatitis (SUAREZ) TAKE 2 TABLETS HIV/AIDS CARE NURSE BEFORE BREAKFAST AND 1 TABLET DAILY WITH DINNER 270 tablet 3 025 Active ALPRAZolam (XANAX) 1 mg tablet TAKE 1 TABLET(1 MG) BY MOUTH EVERY NIGHT NEEDED FOR ANXIETY 30 tablet 2 Active oxyCODONE (ROXICODONE) 5 mg immediate release tabletIndications: Pain Take 1 tablet (5 mg total) by mouth every 12 (twelve) hours as needed for pain 60 tablet Active ALPRAZolam (XANAX) 1 mg tablet Take 1 tablet (1 mg total) by mouth nightly as needed for anxiety 30 tablet 025 2024 Discontinued oxyCODONE (ROXICODONE) 5 mg immediate release tabletIndications: Pain Take 1 tablet (5 mg total) by mouth every 12 (twelve) hours as needed for pain 60 tablet 025 2024 Discontinued(R eorder) amoxicillin-clavul anate (AUGMENTIN) 875-125 mg per tabletIndications: Acute non-recurrent maxillary sinusitis Take 1 tablet by mouth 2 (two) times a day for 5 days 10 tablet 2024 Active Problems Problem Noted Date Diagnosed Date Myelopathy 02/01/2025 Assessment & Plan (02/01/2025 8:56 AM CDT): Following pain specialist for this Limited treatment options with chronic conditions Chronic, continuous use of opioids 02/01/2025 Assessment & Plan (02/01/2025 8:59 AM CDT): Taking same amount of oxycodone for >6 months now Continue current regime with chronic conditions and pain Has narcan prescription Seeing pain clinic for possible implantation of pain stimulator Iron deficiency anemia due to chronic blood loss 09/03/2024 Assessment & Plan (02/01/2025 8:58 AM CDT): From GI conditions Needs recheck of CBC Takes multiple vitamins Assessment & Plan (09/03/2024 1:44 PM ENGINEER ASSISTANT): She reports worsening diarrhea over last several months. Currently having 4-8 BM's per day w/ nocturnal awakenings. Denies any BRBPR but occasionally has dark colored stools.Given microcytic anemia, will need careful evaluation to r/o slow overt blood loss given she is due for CC screening. Plan: - Colonoscopy with mucosal biopsies to r/o microscopic colitis - Stool studies, per above Pancytopenia 04/04/2024 Assessment & Plan (02/01/2025 8:55 AM CDT): From liver cirrhoissi Monitor Cannot do DAPT Assessment & Plan (04/04/2024 10:27 AM CDT): From liver cirrhoissi Monitor Cannot do DAPT Arthralgia of knee 12/23/2023 Menstrual disorder 12/23/2023 Lumbar radiculopathy 12/23/2023 Ventral hernia without obstruction or gangrene 0 05/05/2022 Assessment & Plan (03/14/2023 11:05 AM CDT): Ms. Worthy remained clinically stable post-hernia repair surgery in 2021. No contraindication from a liver standpoint for surgical intervention. Appreciate Dr. Tremaine Allison's recommendations. Assessment & Plan (05/06/2022 8:35 AM CDT): See Umbilical Hernia Umbilical hernia without obstruction and without gangrene 03/23/2022 Overview (03/23/2022): Added automatically from request for surgery [id number] Assessment & Plan (08/03/2024 8:23 AM CDT): History of repair, likely resulting in mass she is feeling now Will check US Assessment & Plan (05/08/2022 11:31 AM CDT): OR 05/05 (Keegan): lap assisted primary repair of LLQ port site hernia and primary repair of umbilical hernia No drains, closed with dermabond, island dressing x2 over sites to be removed POD#2 - 05/06 POD#1 - incisions CDI, tolerating CLD and ADAT, c/o bloating, denies Flatus or BM, enc OOB, PT/OT, pain well controlled 05/07 dermabond intact to laparoscopic incisions, tolerating PO diet Assessment & Plan (03/25/2022 8:23 AM CDT): Considering procedure to fix this general surgery Long QT syndrome 10/22/2019 Assessment & Plan (11/26/2019 8:54 AM ENGINEER ASSISTANT): Referral cardio CAROLYNE on CPAP 10/19/2019 Assessment & Plan (12/04/2019 1:29 PM ENGINEER ASSISTANT): Patient has hx of CAROLYNE, on CPAP -continue home CPAP settings on NPPV Assessment & Plan (12/04/2019 1:03 PM ENGINEER ASSISTANT): -continue home nocturnal cpap Assessment & Plan (10/19/2019 3:35 AM ENGINEER ASSISTANT): CPAP - does not known home settings Health maintenance examination 07/01/2019 Overview (07/01/2019): PMH:01/05/2019 Last pap: 2012 Last mammogram: 03/28/2019 Last dexa: Last colonoscopy/cologuard: 07/13/2018 Repeat 2020 Last Hep C: 12/22/2015 Last tdap: due Last Hep B: due Last Prevnar/pneumovax: Last Shingrix: Last eye exam: Assessment & Plan (02/01/2025 8:58 AM CDT): Reviewed preventative yearly labs(lipids, CBC, CMP), regular recommended cancer screenings for patient demographics along with recommended vaccines Assessment & Plan (04/21/2020 8:22 AM CDT): Will get mammogram, pap smear in the next month Up to date on labs, we will get his at end of April when she goes into appointment with Hem/onc Insomnia due to other mental disorder 01/05/2019 Irritable bowel syndrome with constipation 08/01 Assessment & Plan (02/12/2019 6:10 PM CDT): I suspect this is the cause of her abdominal complaints. Trial of amitriptyline 25 mg q.h.s.. She previously had hallucinations while on nortriptyline. If the symptoms recur, she will call the office for additional recommendations. I encouraged her to use MiraLax intermittently for constipation. There is no evidence of bowel obstruction. Alcohol dependence in remission 08/01/2017 Assessment & Plan (02/01/2025 8:55 AM CDT): Follows liver specialist Continue to monitor Assessment & Plan (04/04/2024 10:28 AM CDT): Follows liver specialist Continue to monitor Assessment & Plan (09/01/2023 6:55 PM ENGINEER ASSISTANT): She understands the importance of ongoing/long-term abstinence. A return to heavy drinking would clearly lead to additional liver injury and decompensation. Assessment & Plan (05/15/2020 7:04 PM CDT): She understands the importance of ongoing alcohol abstinence. A return to drinking will likely result in further deterioration of liver function and even from liver failure. Assessment & Plan (12/07/2019 8:56 AM ENGINEER ASSISTANT): Encourage patient to stay alcohol free Assessment & Plan (10/29/2019 12:50 PM ENGINEER ASSISTANT): Counseled pt again she needs to avoid all alcohol. Assessment & Plan (08/20/2019 9:38 AM CDT): She denies recent alcohol use. I stressed the importance of ongoing abstinence. As long as she maintains abstinence, transplantation is a consideration as the liver disease worsens. Depression, major, recurrent, moderate 7 Assessment & Plan (02/01/2025 8:55 AM CDT): Chronic stable Well controlled Continue current prescribed medications zoloft at current dose Assessment & Plan (04/04/2024 10:28 AM CDT): Chronic stable Well controlled Continue current prescribed medications zoloft at current dose Assessment & Plan (01/28/2023 7:45 AM CDT): Chronic stable Well controlled Continue current prescribed medications at current dose Assessment & Plan (03/25/2022 8:23 AM CDT): Continue current medications Assessment & Plan (10/29/2019 12:52 PM ENGINEER ASSISTANT): Improved. MARGAUX (generalized anxiety disorder) 03/26/2016 Assessment & Plan (02/01/2025 8:57 AM CDT): Chronic condition and takes nightly xanax and daily zoloft for this Assessment & Plan (05/06/2022 8:55 AM CDT): Home meds: Xanax 1mg BID PRN - 05/06 patient states taking at night only, will restart tonight Assessment & Plan (03/25/2022 8:23 AM CDT): Continue current medications Assessment & Plan (02/15/2020 9:45 AM CDT): Continue current medications No changes Continue to follow-up with psych Assessment & Plan (12/04/2019 1:28 PM ENGINEER ASSISTANT): Patient has a hx of panic attacks and anxiety. Has home regimen of wellbutrin 75mg nightly, xanax 1mg nightly prn, and klonopin 1mg BID prn -continue wellbutrin, xanax, klonopin Assessment & Plan (12/02/2019 11:50 PM ENGINEER ASSISTANT): -hold bupropion 75 daily in s/o hyponatremia given decreased sz threshold side effect Assessment & Plan (10/19/2019 3:34 AM ENGINEER ASSISTANT): Home regimen: xanax 1mg po BID PRN [...] as patient tolerates - buproprion 75mg qpm Alcoholic cirrhosis of liver with ascites 2015 Assessment & Plan (09/03/2024 1:41 PM ENGINEER ASSISTANT): She is currently doing well in setting of sobriety. I suspect her fatigue is likely largely driven by her anemias and possibly dehydration from diarrhea. She is due for colon cancer screening given her inadequate prep in the past, change in bowel habits, and colonic thickening seen on CT A&P of ascending colon in 2022. Her MELD 3.0= 10.0. She is up to date with her HCC screening without liver lesions on last biopsy. - HCC: Liver US Q6 months - Ascites: Lasix 80mg/40mg, spironolactone 100mg daily (PHIL) - HE: Rifaximin 550mg BID - EV: on Nadolol 5mg daily, last EGD 2019 small EV's Plan: - EGD/Colonoscopy - CBC, Iron Panel, ferritin - Stool cultures, C.diff, fecal leukocytes, fecal calprotectin - Possibly start iron tablets pending labs Assessment & Plan (11/30/2023 9:48 AM ENGINEER ASSISTANT): Monitor liver function Assessment & Plan (09/01/2023 6:54 PM ENGINEER ASSISTANT): Decompensated based on a history of ascites though markedly improved in the face of long-term abstinence. I suggested cutting the furosemide to 40 mg b.i.d.. If she develops worsening peripheral edema, she can return to the previous dose. She needs continued sonographic imaging of the liver every 6 months to screen for hepatocellular carcinoma. She will return in 1 year or when clinically indicated. Assessment & Plan (03/14/2023 11:07 AM CDT): Ms. Worthy presents for alcoohl related cirrhosis (+Ascites, +EV, + HE_. She is medically managed with MELD-Na score of 11. She denies worsening ascites or encephalopathy. - Ascites: None appreciated on today's exam. Abdominal US 01/2023 revealed no ascites. Continue furosemide 80mg AM/40mg PM and spironolactone 100mg daily - History of SBP, continue on ciprofloxacin for secondary prophylaxis - HE: No recent episodes. Negative asterixis. Continue lactulose/rifaximin. - HCC Surveillance: Last imaging was Ultrasound on 02/14/2023 . - Variceal Screening: Last EGD was 2019. Results show grade 1 EV. On Nadolol. No indication for EGD at this time. - Continue abstinence from alcohol. - Last set of labs 02/14/2023. AFP level was 4.2 on 02/14/2023. Will continue to monitor ever 3 months Assessment & Plan (01/28/2023 7:45 AM CDT): Continue to follow with liver specialist Assessment & Plan (09/06/2022 10:30 AM ENGINEER ASSISTANT): MELD-Na was 15 from post-op labs. Last labs in 07/2022 with improving Tbili and mild ALP elevation noted. Pt with no worsening ascites or encephalopathy. Did clinically stable post-hernia repair surgery. - Ascites: continue furosemide 80mg AM/40mg PM and spironolactone 100mg daily - History of SBP, continue ciprofloxacin for secondary prophylaxis. - Recommend to continue lactulose/rifaximin for HE - On nadolol for history of esophageal varices G1, continue this for now - Last US Liver 07/2022 with no HCC. Continue US every 6 months. - Continue abstinence from alcohol. Pt will need labs now to follow, but reassuring labs from 07/2022. Assessment & Plan (05/08/2022 11:33 AM CDT): -Follows with [facility], MELD 13, last clinic visit 02/01/22 -Hep c/s -Home meds: cont lasix 40mg PO BID, spironolactone 150mg PO QD, cipro 500mg PO QD, xifaxan 550mg PO BID, lactulose BID PRN - 05/06 Per Hepatology recs, can resume all home meds. ACCS to hold lactulose until passing flatus -05/07 resumed lactulose, added dulcolax suppository and magnesium citrate Discharging on home medications follow up with GI as scheduled Assessment & Plan (03/25/2022 8:22 AM CDT): Recommend to follow the guidance of her specialist in relation to the procedure moving forward Labs just done 03/23 Continue current medications Assessment & Plan (02/02/2022 9:23 AM CDT): History of alcoholic cirrhosis decompensated on the basis of ascites which has been well controlled on diuretics since she has been abstinent from alcohol. She has had recent decompensation in the setting of orthopedic injuries requiring surgery and has required LVP and was also treated for neutracytic ascites 08/2021. She has not required LVP since early September however. She continues on ciprofloxacin daily for SBP prophylaxis. For her ascites, we will plan to decrease her diuretics back to prior doses. We will reduce lasix from 80mg qAM/40mg qpm to lasix 40 mg bid and decrease spironolactone from 150 mg daily to 100 mg daily. She will continue on a low-salt diet and we will continue to monitor her labs closely. Plan to obtain CMP, CBC, INR today. She is up-to-date on hepatoma surveillance as she had a contrasted CT of her abdomen/pelvis in September of 2021. We will continue surveillance every 6 months. Obtain AFP. EGD 11/2019 with G1EV, no prior history of bleeding. She has an appointment with Dr. Torres to discuss possibility of surgery for abdominal hernia. We will get a better assessment of her risk profile for surgery pending repeat labs today. Assessment & Plan (10/06/2021 12:18 PM ENGINEER ASSISTANT): Contineu to follow with liver Assessment & Plan (03/27/2021 9:35 AM CDT): Continue to follow with liver Continue medications as prescribed Assessment & Plan (05/15/2020 7:04 PM CDT): Improving in the face of alcohol abstinence. Check labs to evaluate her electrolytes and renal function. There is a chance we could taper the diuretics, however, would like to see the labs before making change. I will see her in 6 months or when clinically indicated. Assessment & Plan (04/21/2020 8:20 AM CDT): Continue her medicatins and abstainin from alcohol She is doing well job of this Explained her belly and appearance is related to her disease Explained she needs to avoid alcohol at all cost Assessment & Plan (02/15/2020 9:47 AM CDT): Follows liver specialist Just starting seeing them this year Happy with care and current plan Continue to follow No longer drinking and hasnt since gi Assessment & Plan (12/07/2019 8:55 AM ENGINEER ASSISTANT): Followed by specialist. Continue current meds Assessment & Plan (11/26/2019 8:53 AM ENGINEER ASSISTANT): Continue to avoid all alcohol. F/u with Dr. Barrios Assessment & Plan (10/29/2019 12:51 PM ENGINEER ASSISTANT): Pt is being monitored by Dr. Barrios. Continue current tx plan. Repeat labs due today Assessment & Plan (08/20/2019 9:36 AM CDT): Decompensated on the basis of a history of ascites. It is unclear to me if the abdominal distention is related to cirrhosis versus adipose tissue. I am not going to increase her diuretics until the ascites has been documented. I have ordered a CT scan to screen for hepatocellular carcinoma and to try and rule out causes of the abdominal pain (addressed below). Assessment & Plan (02/12/2019 6:10 PM CDT): Decompensated based on a history of ascites. The elevated AST to ALT raises some question if she continues to drink. Assessment & Plan (06/30/2018 5:44 PM CDT): No significant change; no obvious evidence of decompensation. She will be due for imaging of the liver to screen for hepatocellular carcinoma in the next few months. GERD (gastroesophageal reflux disease) Assessment & Plan (01/28/2023 7:45 AM CDT): Chronic stable Well controlled Continue current prescribed medications at current dose Resolved Problems Problem Noted Date Diagnosed Date Resolved Date Abdominal pain 12/23/2023 08/03/2024 Abnormal laboratory test result 12/23/2023 08/03/2024 Anxiety 12/23/2023 02/01/2025 Overview (12/23/2023): Discussed addicitve potential of Xanax - will refill but advised pt that she is only to take medication when she needs it and will pay close attention to refills. Fatty liver 12/23/2023 02/01/2025 Calculus of gallbladder 12/23/202301/22 Coronary artery disease 12/23/202301/22 Dry eye syndrome 12/23/2023 02/01/2025 Essential hypertension 12/23/202302/01 Generalized abdominal rigidity 12/23/2023 02/01/2025 Oligomenorrhea 12/23/2023 02/01/2025 Other specified abnormal fin dings of blood chemistry 12/23/2023 08/03/2024 Panic disorder without agoraphobia 12/23/2023 02/01/2025 Severe acute respiratory syn drome coronavirus 2 (SARS-CoV-2) test result unknown 12/23/202302/01 Snoring 12/23/2023 02/01/2025 Closed fracture of right hip 04/04/2023 02/01/2025 Fall 04/04/2023 11/30/2023 Edema of left lower leg 10/06/202101/22 Assessment & Plan (10/06/2021 12:20 PM ENGINEER ASSISTANT): From surgery and her poor venous flow on top of known cirrhosis Doppler negative in OR yesterday Will follow-up with surgery tomorrow Advised to keep elevated and wrapped when walking or moving around Colon polyps 05/21/2021 08/03/2024 Overview (05/21/2021): Added automatically from request for surgery [id number] Assessment & Plan (03/14/2023 11:05 AM CDT): Pt with 3 polyps removed in 2018, was planned for repeat in 3-5 years. She had attempted colonoscopy 06/2021 with inadequate prep. - Ambulatory referral made for Colonoscopy Assessment & Plan (09/06/2022 10:33 AM ENGINEER ASSISTANT): Pt with 3 polyps removed in 2017, was planned for repeat in 3-5 years. She had attempted colonoscopy 06/2021 with inadequate prep. - We will discuss with patient about scheduling colonoscopy in 2022. Thoracic back pain 12/05/2019 Assessment & Plan (04/04/2024 10:27 AM CDT): Increasing oxycodone dose Assessment & Plan (12/05/2019 3:48 PM ENGINEER ASSISTANT): Patient endorsed back pain as chief complaint at OSH. 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. -patient advised to f/u with PCP Fever 12/02/2019 02/02/2022 Assessment & Plan (12/04/2019 1:33 PM ENGINEER ASSISTANT): Patient had fever 102 at OSH. No leukocytosis. S/p ceftriaxone 1g daily x3 days. Minimal ascites on CT. No further fevers. -dsc CTX Assessment & Plan (12/04/2019 1:05 PM ENGINEER ASSISTANT): H/o SBP. Pt had T 102 at OSH, no leukocytosis. Had CTX x 3 or more days. - d/c CTX Heart murmur 11/26/2019 11/30/2023 Assessment & Plan (11/26/2019 8:54 AM ENGINEER ASSISTANT): Referral to cardio. Need echo. Change in heart murmur BMI 24.0-24.9, adult 10/29/2019 024 Assessment & Plan (2020 8:31 AM ENGINEER ASSISTANT): Weight is well controlled Assessment & Plan (10/29/2019 12:51 PM ENGINEER ASSISTANT): Educated patient on healthy diet/exercise plan. Exercise 150min-300min per week of moderate intensity. Diet: good, healthy protein (eggs, nuts, peanut butter, chicken, fish, turkey, less pork/beef), lots of vegetables, less carbohydrates and less sugar. Normocytic anemia 10/19/2019 08/03/2024 Assessment & Plan (04/21/2020 8:20 AM CDT): Continue follow-up with Hem/Onc Assessment & Plan (10/19/2019 6:37 AM ENGINEER ASSISTANT): - Hgb 7 --> 6.7; baseline 7-8. Iron 57, ferritin 25 01/2019. Possibly nutritional in setting of poor intake with abdominal pain and distension. No signs of GIB. HDS. - T&S active, consented - 1U pRBC, f/u post tx CBC Hypoalbuminemia 10/10/2019 11/30/2023 Anemia in other chronic dise ases classified elsewhere 01/05/2019 02/01/2025 Assessment & Plan (08/03/2024 8:25 AM CDT): Has cirrhosis and chronic anemia Cannot take aspirin for this reason Assessment & Plan (05/06/2022 8:44 AM CDT): Home med: ferrous sulfate ER 324 mg TID - 05/06 holding for now, Hgb stable 11.5 Assessment & Plan (12/07/2019 8:56 AM ENGINEER ASSISTANT): Patient will repeat labs on Tuesday or Tuesday. Patient will be referred to hematology for further evaluation and monitoring Assessment & Plan (11/26/2019 8:54 AM ENGINEER ASSISTANT): Recheck labs Diarrhea 06/29/2018 02/12/2019 Overview (06/29/2018): Added automatically from request for surgery [id number] Assessment & Plan (09/03/2024 1:43 PM ENGINEER ASSISTANT): She reports worsening diarrhea over last several months. Currently having 4-8 BM's per day w/ nocturnal awakenings. Denies any BRBPR but occasionally has dark colored stools.Given microcytic anemia, will need careful evaluation to r/o slow overt blood loss given she is due for CC screening. Plan: - Colonoscopy with mucosal biopsies to r/o microscopic colitis - Stool studies, per above Assessment & Plan (06/30/2018 5:44 PM CDT): Uncertain cause. This may be a prolonged viral gastroenteritis, but we certainly have to consider the possibility of inflammatory bowel disease, collagenous colitis, microscopic colitis, and Clostridium difficile colitis. I will schedule her for a colonoscopy with mucosal biopsies as appropriate. Varices, esophageal 01/30/2018 04/04/20 24 Assessment & Plan (09/01/2023 6:56 PM ENGINEER ASSISTANT): Grade 1 on previous EGD; now on beta-mattie therapy; no need for follow-up endoscopic surveillance. Vitamin D deficiency 10/07/2017 025 Assessment & Plan (2020 8:32 AM ENGINEER ASSISTANT): Continue supplement Portal hypertension 01/23/2016 04/04/20 24 Assessment & Plan (05/06/2022 8:43 AM CDT): Home meds: Cont Nadolol 10mg every day Assessment & Plan (11/26/2019 8:54 AM ENGINEER ASSISTANT): Referral cardio Immunizations Immunization Administration Dates Next Due Influenza, Unspecified 08/24/2023,2022(Deferred: Patient Refused),08/24/2022 PPD TEST 02/14/2023 Tdap 12/29/2023,03/27/2016 Social History Tobacco Use Types Packs/Day Years Used Date Smoking Tobacco: Never Smokeless Tobacco: Never Tobacco Cessation:Counseling Given: Not Answered Alcohol Use Standard Drinks/Week Comments Not Currently 0 (1 standard drink = 0.6 oz pure alcohol) Previously dependent, last had a glass of champagne Thanks2018 AUDIT-C Answer Date Recorded Q1: How often do you have a drink containing alcohol? Never 02/01/2025 Q2: How many drinks containi ng alcohol do you have on a typical day when you are drinking? Patient does not drink Q3: How often do you have si x or more drinks on one occasion? Never 02/01/2025 PHQ-2 Answer Date Recorded PHQ-2 Total Score (If total score is 3 or more points, staff should administer the PHQ-9) 0 02/01/2025 Personal Safety Answer Date Recorded Have you ever been in or are you currently in a harmful physical or emotional relationship or is someone making you feel afraid or unsafe? Denies 09/19/2024 Comments No Sex and Gender Information Value Date Recorded Sex Assigned at Not on file Legal Sex Female 9:20 AM ENGINEER ASSISTANT Gender Identity Not on file Sexual Orientation Not on file Last Filed Vital Signs Vital Sign Reading Time Taken Comments Blood Pressure 108/64 02/01/2025 8:19 AM CDT Pulse 79 02/01/2025 8:19 AM CDT Temperature 36.6 C (97.9 F) 02/01/2025 8:19 AM CDT Respiratory Rate 18 02/01/2025 8:19 AM CDT Oxygen Saturation 98% 02/01/2025 8:19 AM CDT Inhaled Oxygen Concentration - - Weight 85.7 kg (189 lb) 02/01/2025 8:19 AM CDT Height 177.8 cm (5' 10 ) 02/01/2025 8:19 AM CDT Body Mass Index 27.12 02/01/2025 8:19 AM CDT Plan of Treatment Not on file Medical Devices Implanted Type Area [employer] Professor Device Identifier Shelf Expiration Date Model / Serial / Lot Clip Left: Breast Procedures Procedure Name Priority Date/Time Associated Diagnosis Comments EGFR Routine 02/01/2025 9:26 AM CDT Preventative health care DIFFERENTIAL AUTO Routine 02/01/2025 9:2 6 AM CDT [facility] care CBC WITH AUTO DIFFERENTIAL Routine 02/01/2025 9:26 AM CDT [facility]ative [facility] care COMPREHENSIVE METABOLIC PANEL Routine 02/01/2025 9:26 AM CDT Preventative health care LIPID PANEL Routine 02/01/2025 9:26 AM CDT Preventative health care THYROID FUNCTION CASCADE Routine 02/01/2025 9:26 AM CDT Pancytopenia (HCC) [facility] HEPATITIS B SURFACE ANTIBODY (IMMUNE STATUS) Routine 02/01/2025 9:26 AM CDT Alcoholic cirrhosis of liver with ascites (HCC) [facility] MRI THORACIC SPINE WO CONTRAST Schedule Routine, Read Routine (OP Routine) 12/30/2024 7:55 AM CDT Radiculopathy, lumbar region COLONOSCOPY 09/19/2024 11:14 AM ENGINEER ASSISTANT SCREENING MAMMOGRAM BILATERAL W SOTERO Schedule Routine, Read Routine (OP Routine) 05/09/2023 2:17 PM CDT Preventative health care HM PAP SMEAR WITH HPV Routine 05/31/2020 HEPATITIS PANEL, ACUTE Routine 12/22/2015 9:48 AM ENGINEER ASSISTANT from Last 3 Months or Most Recently Relevant to Health Maintenance Results * eGFR (02/01/2025 9:26 AM CDT) eGFR 87 >=60 mL/min/1. 73 m2 Comment: Interpretive Data Reference Interval Normal >/= 90 mL/min/1.73m2 Mildly decreased* 60 - 89 mL/min/1.73m2 Mildly to moderately decreased 45 - 59 mL/min/1.73m2 Moderately to severely decreased 30 - 44 mL/min/1.73m2 Severely decreased 15 - 29 mL/min/1.73m2 Kidney Failure < 15 mL/min/1.73m2 *Relative to young adult level Estimated glomerular filtration rate is determined by the 2020 CKD-EPI equation recommended by the National Kidney Foundation (A Unifying Approach to GFR Estimation: Recommendations of the NKF-ASK Task Force on Reassessing the Inclusion of Race in Diagnosing Kidney Disease, JASN 2020). The CKD-EPI equation should not be used for patients with unstable renal function and has not been validated in children and those over 70. Current interpretive data was last reviewed 2021. Testing performed by: [address] [address] Blood 02/01/2025 9:26 AM CDT 02/01/2025 10:47 AM CDT us Pradeep Greco Jr., MD LAB BLOOD ORDERABLES Final Result [facility] [address] [facility] [place] [address] * (ABNORMAL) Differential, auto (02/01/2025 9:26 AM CDT) Neutrophil abs 2.24 1.50 - 6.50 K/cumm Comment:Testing performed by : [address] [address] Imm gran abs 0.01 0.00 - 0.10 K/cumm [facility] Comment:Testing performed by : [address] [address] Lymphocyte abs 0.41(L) 0.80 - 3.30 K/cumm [facility] Comment:Testing performed by : [address] [address] Monocyte abs 0.26 0.20 - 0.80 K/cumm [facility] Comment:Testing performed by : [address] [address] Eosinophil abs 0.05 0.00 - 0.50 K/cumm [facility] Comment:Testing performed by : [address] [address] Basophil abs 0.01 0.00 - 0.10 K/cumm [facility] Comment:Testing performed by : [address] [address] Neutrophil pct 75.2 % [facility] Comment: Interpretive Data Percent cell count reference ranges are not reported, since discordance with absolute values may lead to misinterpretation of CBC data. Current Interpretive Data was last revised on 2018. Testing performed by: [address] [address] Imm gran pct 0.3 % [facility] Comment: Interpretive Data Percent cell count reference ranges are not reported, since discordance with absolute values may lead to misinterpretation of CBC data. Current Interpretive Data was last revised on 2018. Testing performed by: [address] [address] Lymphocyte pct 13.8 % [facility] Comment: Interpretive Data Percent cell count reference ranges are not reported, since discordance with absolute values may lead to misinterpretation of CBC data. Current Interpretive Data was last revised on 2018. Testing performed by: [address] [address] Monocyte pct 8.7 % [facility] Comment: Interpretive Data Percent cell count reference ranges are not reported, since discordance with absolute values may lead to misinterpretation of CBC data. Current Interpretive Data was last revised on 2018. Testing performed by: [address] [address] Eosinophil pct 1.7 % [facility] Comment: Interpretive Data Percent cell count reference ranges are not reported, since discordance with absolute values may lead to misinterpretation of CBC data. Current Interpretive Data was last revised on 2018. Testing performed by: [address] [address] Basophil pct 0.3 % [facility] Comment: Interpretive Data Percent cell count reference ranges are not reported, since discordance with absolute values may lead to misinterpretation of CBC data. Current Interpretive Data was last revised on 2018. Testing performed by: [address] [address] Blood 02/01/2025 9:26 AM CDT 02/01/2025 10:47 AM CDT us Pradeep Greco Jr., MD LAB BLOOD ORDERABLES Final Result [facility] [address] [facility] [place] [address] * Thyroid Function [place] (02/01/2025 9:26 AM CDT) Pathologist [facility] TSH 2.21 0.30 - 4.20 mcIUnit/mL Comment:Testing performed by : [address] [address] Blood 02/01/2025 9:26 AM CDT 02/01/2025 10:47 AM CDT us Pradeep Greco Jr., MD LAB BLOOD ORDERABLES Final Result [facility] [address] [facility] Department [place] [address] * (ABNORMAL) CBC with auto differential (02/01/2025 9:26 AM CDT) [facility] WBC 2.98(L) 3.80 - 9.90 K/cumm Comment:Testing performed by : [address] [address] Hgb 7.2(L) 11.9 - 15.5 g/dL [facility] Comment:Testing performed by : [address] [address] Hct 26.7(L) 35.6 - 45.5 % [facility] Comment:Testing performed by : [address] [address] Plt 95(L) 150 - 400 K/cumm [facility] Comment:Testing performed by : [address] [address] MPV Not Measured 9.1 - 12.3 fL [facility] Comment:Testing performed by : [address] [address] RBC 3.93 3.90 - 5.20 M/cumm [facility] Comment:Testing performed by : [address] [address] MCV 67.9(L) 81.3 - 96.4 fL [facility] Comment:Testing performed by : [address] [address] MCH 18.3(L) 27.1 - 33.3 pg [facility] NUNEZ Comment:Testing performed by : [facility], [address] [place] [address]., [address] MCHC 27.0(L) 32.3 - 35.7 g/dL [facility] NUNEZ Comment:Testing performed by : [facility], [address] [place] [address]., [address] RDW CV 19.3(H) 11.1 - 14.9 % [facility] Comment:Testing performed by : [address] [address] RDW SD 46.3 35.7 - 48.1 fL [facility] Comment:Testing performed by : [address] [address] NRBC abs 0.00 0.00 - 0.01 K/cumm [facility] Comment:Testing performed by : [facility], [address] [place] [address]., [address] Blood 02/01/2025 9:26 AM CDT 02/01/2025 10:47 AM CDT Pradeep Greco Jr., MD LAB BLOOD ORDERABLES Final Result [facility] [address] [facility] Department [place] [address] * Hepatitis B surface antibody (immune status) Blood (02/01/2025 9:26 AM CDT) HBsAb (immune status) Nonreactive Comment: Interpretive Data Nonreactive: This result is consistent with a lack of immunity to Hepatitis B Virus when used in the setting of routine screening. Equivocal: The immune status of the individual should be further assessed, if appropriate, after consideration of clinical status, risk factors, and additional diagnostic information. Reactive: This result is consistent with immunity to Hepatitis B Virus when used in the setting of routine screening. Current interpretive data was last revised on 20. Blood 02/01/2025 9:26 AM CDT 02/01/2025 12:40 PM CDT us Pradeep Greco Jr., MD LAB MICROBIOLOGY - NERAL ORDERABLES Final Result [facility] [address] [facility] [place] [address] * Lipid panel (02/01/2025 9:26 AM CDT) Cholesterol 115 30 - 199 mg/dL Comment: Interpretive Data Ages < or = 19 years Acceptable: <170 mg/dL Borderline high: 170-199 mg/dL High: >or= 200 mg/dL Ages > or = 20 years Desirable: <200 mg/dL Borderline high: 200-239 mg/dL High: >or= 240 mg/dL Literature References: 1. Expert Panel on Integrated Guidelines for Cardiovascular Health and Risk Reduction in Children and Adolescents. Pediatrics 2011;128:S213 2. NCEP Expert Panel. Circulation 2004;110:227 Current Interpretive Data was last revised on 2018. Testing performed by: [address] [address] Triglycerides 46 <=149 mg/dL [facility] Comment: Interpretive Data Ages < or = 9 years Acceptable: <75 mg/dL Borderline high: 75-99 mg/dL High: >or= 100 mg/dL Ages 10 to 20 years Acceptable: <90 mg/dL Borderline high: 90-129 mg/dL High: >or= 130 mg/dL Ages > or = 20 years Desirable: <150 mg/dL Borderline high: 150-199 mg/dL High: 200-499 mg/dL Very high: >or= 499 mg/dL Literature References: 1. Expert Panel on Integrated Guidelines for Cardiovascular Health and Risk Reduction in Children and Adolescents. Pediatrics 2011;128:S213 2. NCEP Expert Panel. Circulation 2004;110:227 Current Interpretive Data was last revised on 2018. Testing performed by: [address] [address] HDL 64 >=40 mg/dL [facility] Comment: Interpretive Data Ages < or = 19 years Acceptable: >45 mg/dL Borderline low: 40-45 mg/dL Low: <40 mg/dL Ages > or = 20 years Desirable: >or= 60 mg/dL Low: <40 mg/dL Literature References: 1. Expert Panel on Integrated Guidelines for Cardiovascular Health and Risk Reduction in Children and Adolescents. Pediatrics 2011;128:S213 2. NCEP Expert Panel. Circulation 2004;110:227 Current Interpretive Data was last revised on 2018. Testing performed by: [address] [address] LDL, calculated 40 <=129 mg/dL [facility] NUNEZ Comment: Interpretive Data Ages < or = 19 years Acceptable: <110 mg/dL Borderline high: 110-129 mg/dL High: >or= 130 mg/dL Ages > or = 20 years Optimal: <100 mg/dL Near optimal: 100-129 mg/dL Borderline high: 130-159 mg/dL High: >160 mg/dL Calculated using the Rajendra LDL-C estimating equation. This equation was implemented on 2024. Prior to this date LDL-C was estimated using the Friedewald equation. Literature References: 1. Expert Panel on Integrated Guidelines for Cardiovascular Health and Risk Reduction in Children and Adolescents. Pediatrics 2011;128:S213 2. NCEP Expert Panel. Circulation 2004;110:227 3. Rajendra Santacruz et al. BRAYAN Cardiol. 2019February 21;5(5):540-548. doi: 10.1001/[email or web address].2020.0013 Current Interpretive Data was last revised on 2024. Testing performed by: [address] [address] Non-HDL Cholesterol 51 mg/dL [facility] Comment: Interpretive Data Ages < or = 19 years Acceptable: <120 mg/dL Borderline high: 120-144 mg/dL High: >145 mg/dL Ages > or = 20 years When triglycerides are >200 mg/dL, Non-HDL cholesterol is a secondary target of therapy with treatment goals that are 30 mg/dL greater than the LDL cholesterol target. Literature References: 1. Expert Panel on Integrated Guidelines for Cardiovascular Health and Risk Reduction in Children and Adolescents. Pediatrics 2011;128:S213 2. NCEP Expert Panel. Circulation 2004;110:227 Current Interpretive Data was last revised on 2018. Testing performed by: [address] [address] Chol/HDL ratio 2 [facility] Comment:Testing performed by : [address] [address] Blood 02/01/2025 9:26 AM CDT 02/01/2025 10:47 AM CDT Pradeep Greco Jr., MD LAB BLOOD ORDERABLES Final Result Performing Organization Address City/State/[facility] Co de Phone Number [facility] [address] [facility] Department [place] [address] * (ABNORMAL) Comprehensive metabolic panel (02/01/2025 9:26 AM CDT) Sodium 138 135 - 145 mmol/L Comment:Testing performed by : [address] [address] Potassium, pl 3.9 3.3 - 4.9 mmol/L [facility] Comment:Testing performed by : [address] [address] Chloride 101 97 - 110 mmol/L [facility] Comment:Testing performed by : [address] [address] CO2 26 22 - 32 mmol/L [facility] Comment:Testing performed by : [address] [address] Anion gap 11 2 - 15 mmol/L [facility] Comment:Testing performed by : [address] [address] BUN 13 6 - 25 mg/dL [facility] Comment:Testing performed by : [address] [address] Creatinine 0.78 0.60 - 1.10 mg/dL [facility] Comment:Testing performed by : [address] [address] Glucose 144 70 - 199 mg/dL [facility] Comment: Interpretive Data Fasting glucose >/= 126 mg/dl is diagnostic for diabetes. Fasting is defined as no caloric intake for at least 8 hours. Fasting glucose between 100 mg/dl to 125 mg/dl is diagnostic of prediabetes. In a patient with classic symptoms of hyperglycemia or hyperglycemic crisis, a random glucose >/= 200 mg/dl is diagnostic for diabetes. In the absence of unequivocal hyperglycemia, results should be confirmed by repeat testing. The classification and Diagnosis of Diabetes Diabetes Care 202; 46: S19-S40. Current interpretive data was last revised 2022. Testing performed by: [address] [address] Calcium 9.1 8.5 - 10.3 mg/dL [facility] Comment:Testing performed by : [address] [address] Bilirubin, total 1.2 0.1 - 1.2 mg/dL [facility] Comment:Testing performed by : [address] [address] Protein, pl 7.1 6.5 - 8.5 g/dL [facility] Comment:Testing performed by : [address] [address] Albumin 3.8 3.5 - 5.0 g/dL [facility] Comment:Testing performed by : [address] [address] Alk phos 209(H) 40 - 130 Units/L [facility] Comment:Testing performed by : [address] [address] ALT 26 7 - 45 Units/L [facility] Comment:Testing performed by : [address] [address] AST 44 10 - 45 Units/L [facility] Comment:Testing performed by : [address] [address] Blood 02/01/2025 9:26 AM CDT 02/01/2025 10:47 AM CDT us Pradeep Greco Jr., MD LAB BLOOD ORDERABLES Final Result [facility] [address] [facility] [place] [address] * MRI Thoracic Spine WO Contrast (12/30/2024 7:55 AM CDT) Anatomical Region Laterality Modality Spine N/A Magnetic Resonan ce 12/31/2024 9:04 AM CDT Narrative 12/31/2024 9:12 AM CDT EXAM DESCRIPTION: MRI THORACIC SPINE WO CONTRAST REASON FOR STUDY: Imaging evaluation in advance of neurostimulator leads placement. No provided patient complaints to include no provided thoracic spine/back complaints. No provided past medical or surgical history. TECHNIQUE: Sagittal and axial imaging of the thoracic spine includes T1, T2, STIR and gradient echo sequences. Images saved to PACS. COMPARISON: Relevant portions of two-view chest radiograph 10/05/2024; relevant portions of CT abdomen with contrast 09/14/2024; relevant portions of lumbar spine radiograph 03/21/2024; relevant portions of MRI cervical and lumbar spine without contrast 10/02/2023 FINDINGS: ALIGNMENT: Normal. VERTEBRAE: No MR evidence of acute-subacute fracture. Vertebral body heights unchanged. Spondylosis. Scattered tiny hemangiomas about the osseous architecture. HARDWARE: None in the lumbar spine. CORD: Normal in size and signal intensity with conus medullaris termination at L1. THORACIC DISCS T1-T12: Multilevel variable intervertebral disc desiccation and loss of intervertebral disc height. T6-7: Minimal annular disc bulge slightly indenting the ventral thecal sac. Bilateral facet arthropathy. No spinal canal stenosis. No neural foraminal stenosis. T7-8: Minimal annular disc bulge with small shallow left subarticular-foraminal junctional disc protrusion slightly indenting the left eccentric ventral thecal sac. Bilateral facet arthropathy. No spinal canal stenosis. No neural foraminal stenosis. T8-9: Minimal annular disc bulge slightly indenting the ventral thecal sac. Bilateral facet arthropathy. No spinal canal stenosis. No neural foraminal stenosis. T9-10: Minimal annular disc bulge slightly indenting the ventral thecal sac. Bilateral facet arthropathy. No spinal canal stenosis. No neural foraminal stenosis. T10-11: Mild posterior maximal annular disc bulge indenting the ventral thecal sac. Bilateral facet arthropathy. Ligamentum flavum thickening. No spinal canal stenosis. No neural foraminal stenosis. T11-12: Minimal annular disc bulge slightly indenting the ventral thecal sac. Bilateral facet arthropathy. No spinal canal stenosis no neural foraminal stenosis. SOFT TISSUES: No acute abnormality. LOWER CERVICAL: Incompletely imaged. No significant spinal stenosis or neuroforaminal stenosis. UPPER LUMBAR: Incompletely imaged. No significant spinal or neuroforaminal stenosis. OTHER: Partial incidental visualization of dependent slight left pleural effusion. IMPRESSION: 1. 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 2. Partial incidental visualization of dependent slight left pleural effusion. Correlate with clinical context and upright two-view chest radiography for initial further evaluation. THIS IS AN ELECTRONICALLY VERIFIED FINAL REPORT 12/31/2024 9:12 AM - Electronically signed by Tarun Welch M.D. ERIN T: Report ID: [id number] Reading Location: [id number] Procedure Note Tarun Welch MD - 12/31/2024 EXAM DESCRIPTION: MRI THORACIC SPINE WO CONTRAST REASON FOR STUDY: Imaging evaluation in advance of neurostimulator leads placement. No provided patient complaints to include no provided thoracic spine/back complaints. No provided past medical or surgical history. TECHNIQUE: Sagittal and axial imaging of the thoracic spine includes T1,T2, STIR and gradient echo sequences. Images saved to PACS. COMPARISON: Relevant portions of two-view chest radiograph 10/05/2024; relevant portions of CT abdomen with contrast 09/14/2024; relevantportions of lumbar spine radiograph 03/21/2024; relevant portions of MRI cervical and lumbar spine without contrast 10/02/2023 FINDINGS: ALIGNMENT: Normal. VERTEBRAE: No MR evidence of acute-subacute fracture. Vertebral body heights unchanged. Spondylosis. Scattered tiny hemangiomas about theosseous architecture. HARDWARE: None in the lumbar spine. CORD: Normal in size and signal intensity with conus medullaristermination at L1. THORACIC DISCS T1-T12: Multilevel variable intervertebral discdesiccation and loss of intervertebral disc height. T6-7: Minimal annular disc bulge slightly indenting the ventral thecalsac. Bilateral facet arthropathy. No spinal canal stenosis. No neuralforaminal stenosis. T7-8: Minimal annular disc bulge with small shallow left subarticular-foraminal junctional disc protrusion slightly indenting theleft eccentric ventral thecal sac. Bilateral facet arthropathy. No spinalcanal stenosis. No neural foraminal stenosis. T8-9: Minimal annular disc bulge slightly indenting the ventral thecalsac. Bilateral facet arthropathy. No spinal canal stenosis. No neuralforaminal stenosis. T9-10: Minimal annular disc bulge slightly indenting the ventral thecalsac. Bilateral facet arthropathy. No spinal canal stenosis. No neuralforaminal stenosis. T10-11: Mild posterior maximal annular disc bulge indenting the ventralthecal sac. Bilateral facet arthropathy. Ligamentum flavum thickening. Nospinal canal stenosis. No neural foraminal stenosis. T11-12: Minimal annular disc bulge slightly indenting the ventral thecalsac. Bilateral facet arthropathy. No spinal canal stenosis no neural foraminal stenosis. SOFT TISSUES: No acute abnormality. LOWER CERVICAL: Incompletely imaged. No significant spinal stenosis or neuroforaminal stenosis. UPPER LUMBAR: Incompletely imaged. No significant spinal orneuroforaminal stenosis. OTHER: Partial incidental visualization of dependent slight left pleural effusion. IMPRESSION: 1. 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 2. Partial incidental visualization of dependent slight left pleural effusion. Correlate with clinical context and upright two-view chest radiography for initial further evaluation. THIS IS AN ELECTRONICALLY VERIFIED FINAL REPORT 12/31/2024 9:12 AM - Electronically signed by Tarun Welch M.D. ERIN T: Report ID: [id number] Reading Location: [place] [address] us [facility] IMG MRI PROCEDURES Final R esult * Colonoscopy (09/19/2024 11:14 AM ENGINEER ASSISTANT) Anatomical Region Laterality Modality Other Narrative Procedure Note Kelsi Hurtado MD - 09/19/2024 11:14 AM CST [facility] Patient Name: Miya Worthy Procedure Date: 09/19/2024 11:14AM Date of : 1965 Admit Type: Outpatient Age: 58 Gender: Female Attending MD: Kelsi Hurtado M.D. Note Status: Finalized Procedure: Colonoscopy Indications: High risk colon cancer surveillance: Personalhistory of colonic polyps, Last colonoscopy: 2020 Referring MD: Fausto Barrios M.D. Providers: Kelsi Hurtado M.D. Medicines: Monitored Anesthesia Care Complications: No immediate complications. Estimated Blood Loss: Estimated blood loss was minimal. Procedure: Pre-Anesthesia Assessment: - Immediately prior to administration ofmedications, the patient was re-assessed for adequacy to receive sedatives. - The risks and benefits of the procedure and the sedation options and risks were discussed with the patient. All questions were answered and informed consent was obtained. The benefits, risks and alternatives of theprocedure and sedation were discussed and informed consentwas obtained. All questions were answered. Please referto the signed informed consent document in the medical record. The scope was passed under direct vision.The [id number] endoscope was introduced through the anus and advanced to the cecum, identified by appendiceal orifice and ileocecal valve. The colonoscopy was performed without difficulty. The patient tolerated the procedure well. The qualityof the bowel preparation was good. The bowelpreparation used was GoLYTELY via split dose instruction. Bowel prep was administered using a split dose. Findings: Hemorrhoids were found on perianal exam. A 2 to 3 mm polyp was found in the descending colon. The polyp was sessile. The polyp was removed with a jumbo cold forceps. Resectionand retrieval were complete. External and internal hemorrhoids were found during retroflexion. Impression: - Hemorrhoids found on perianal exam. - One 2 to 3 mm polyp in the descending colon,removed with a jumbo cold forceps. Resected andretrieved. - External and internal hemorrhoids. Recommendation: - Discharge patient to home (with escort). - Await pathology results. - Repeat colonoscopy for surveillance based on pathology results. - Return to referring physician. Attending Participation: I personally performed the entire procedure. Electronically signed by Kelsi Hurtado MD Kelsi Hurtado M.D. 09/19/2024 11:31:31 AM . Number of Addenda: 0 Note Initiated On: 09/19/2024 11:14 AM us Kelsi Hurtado MD ENDOSCOPY PROCEDURES Final Res ult * Screening Mammogram Bilateral W Sotero (05/09/2023 2:17 PM CDT) Anatomical Region Laterality Modality Breast Bilateral Mammography Impressions 05/09/2023 4:04 PM CDT BI-RADS ATLAS category (overall): 2 - Benign There is no mammographic evidence of malignancy. A 1 year screening mammogram is recommended. The patient has been or will be contacted. We recommend annual screening mammography for women at average risk of breast cancer beginning at age 40, based on guidelines of the [employer] (ACR Practice Parameter for the Performance of Screening and Diagnostic Mammography) and [employer]. For women with and elevated risk of breast cancer, please refer to the ACR Practice Parameter for specific screening recommendations. The patient will be entered into a reminder system with a target due date of 1 year for her next screening exam. Narrative 05/09/2023 4:04 PM CDT Screening Mammogram Bilateral W Sotero: 05/09/23 The study was acquired using full field digital technology and interpreted from soft copy. 2D digital mammographic views, as well as 3D digital tomosynthesis were performed in the CC and MLO projections. CLINICAL: Preventative health care No relevant medical history has been documented for this patient. History of breast cancer in Mother. COMPARISONS: 01/08/2022 Screening Mammogram Bilateral W Sotero 07/16/2020 Screening Mammogram Bilateral W Sotero 03/28/2019 Screening Mammogram Bilateral W Sotero BREAST TISSUE: The breasts are extremely dense, which lowers the sensitivity of mammography. FINDINGS: There are benign appearing calcifications in both breasts, many vascular in origin, not suspiciously changed in the interval. There is no new suspicious finding in either breast on mammogram. Pradeep Greco Jr., MD IM MAMMO PROCEDURES Final Result * HM PAP SMEAR WITH HPV (05/31/2020) Scribed Pap Smear w/HPV Normal Historical Provider HEALTH MAINTENANCE Final Result * Hepatitis panel, acute (12/22/2015 9:48 AM ENGINEER ASSISTANT) HepBsAg NONREACT NONREACTIVE 12/22/2015 11:22 AM ENGINEER ASSISTANT [employer] HISTORICAL RESULTS Comment: Siemens CentaurXP using ZORA (chemiluminescent immunoassay) technology. NONREACTIVE: IgM antibodies to Hepatitis B Surface antigen not detected. REACTIVE: IgM antibodies to Hepatitis B Surface antigen detected. Reactive results will be confirmed by neutralization testing. HBsAb qn < 3.10 mIU/mL 12/22/2015 11:09 AM ENGINEER ASSISTANT [employer] HISTORICAL RESULTS Comment: Siemens CentaurXP using ZORA (chemiluminescent immunoassay) technology. 9.99 IU/L or less.....NONREACTIVE: IgM antibodies to Hepatitis B Surface antibody are not detected. 10.00 IU/L or greater..REACTIVE: IgM antibodies to Hepatitis B Surface antibody are detected. Hep B core IgM NONREACT NONREACTIVE 6 11:48 AM ENGINEER ASSISTANT [employer] HISTORICAL RESULTS Comment: Siemens CentaurXP using ZORA (chemiluminescent immunoassay) technology. NONREACTIVE: IgM antibodies to Hepatitis B Core antigen not detected. EQUIVOCAL: IgM antibodies to Hepatitis B Core antigen may or may not be present. Obtain a new specimen and retest. REACTIVE: IgM antibodies to Hepatitis B Core antigen detected. Hep A IgM NONREACT NONREACTIVE 12/22/2015 11:50 AM ENGINEER ASSISTANT [facility] HISTORICAL RESULTS Comment: Siemens CentaurXP using ZORA (chemiluminescent immunoassay) technology. NONREACTIVE: IgM antibodies to Hepatitis A not detected. This does not exclude possibility of exposure to Hepatitis A or early acute infection. EQUIVOCAL:IgM antibodies to Hepatitis A may or may not be present. Suggest recollection and retest. REACTIVE: Antibodies to Hepatitis A detected. Hep C Ab NONREACT NONREACTIVE 12/22/2015 11:48 AM ENGINEER ASSISTANT [facility] HISTORICAL RESULTS Comment: Siemens CentaurXP using ZORA (chemiluminescent immunoassay) technology. NONREACTIVE: Antibodies to Hepatitis C not detected. This does not exclude early acute Hepatitis C infection, possibility of exposure to Hepatitis C, antibodies below detection limit, or to lack of antibody reactivity to the antigen used in this assay. EQUIVOCAL: Antibodies to Hepatitis C may or may not be present. Sample to be confirmed by real-time PCR method. REACTIVE: Antibodies to Hepatitis C detected. 12/22/2015 9:48 AM ENGINEER ASSISTANT 12/22/2015 10:25 AM ENGINEER ASSISTANT Jj Hurtado MD LAB MICROBIOLOGY - GENERAL ORDERABLES Final Result [facility] HISTORICAL RESULTS from Last 3 Months or Most Recently Relevant to Health Maintenance Insurance [facility] Advance Directives For more information, please contact: [phone] Documents on File Type Date Recorded Patient Manifest/Order Organizer Print Orders Expl anation Power of Hatchery Helper 12/28/2022 9:23 AM * Full Code (Latest Code Status on File) Date Activated Date Inactivated Comments 05/05/2022 3:32 PM 05/08/2022 10:20 PM * Full Code Date Activated Date Inactivated Comments 07/03/2021 7:47 AM 07/03/2021 1:41 PM * Full Code Date Activated Date Inactivated Comments 12/02/2019 10:46 PM 12/05/2019 9:24 PM * Full Code Date Activated Date Inactivated Comments 10/19/2019 12:35 AM 10/20/2019 2:17 PM * Full Code Date Activated Date Inactivated Comments 10/02/2019 9:44 AM 10/02/2019 3:41 PM Care Teams Documentation Nurse Relationship Specialty Start Date End Date Pradeep Greco Jr., MD PCP - General Internal Medicine 01/22/20 Jalen Bell MD Medical Oncologist/It Trainer Hematology and Oncology 03/04/20
--- OUTSIDE RECORDS SUMMARY | 2025-02-27 09:28 | XMS_ITS | Clinical Summary ---
Author Organization [facility] Address [address] [place] [address] Care Team Providers Care Etcher Aircraft Name Role Phone Angus Elkins MD, Pradeep Donnelly Primary Care Provide r Jalen Bell MD Unavailable [phone] Allergies Active Allergy Reactions Criticality Noted Date [...] TAKE 1 TABLET DAILY 90 tablet 3 024 Active albuterol HFA (ProAir HFA) 90 mcg/actuation inhalerIndications :Seasonal allergies Inhale 2 puffs every 4 (four) hours as needed for wheezing or shortness of breath 3 each 4 024 Active guaiFENesin-codein e (GUAITUSS AC) liquid 100-10 mg/5 mLIndications:Bron chitis Take 5-10 mL by mouth every 4 (four) hours as needed for cough 120 mL 024 Active Additional Information Patient not taking.Reported [...] if no or minimal response. 1 each Active rifAXIMin (Xifaxan) 550 mg tabletIndications: Alcoholic [...] into each nostril daily 3 each 4 Active Additional Information Patient not taking.Reported on 02/01/2025 spironolactone (ALDACTONE) 100 mg tabletIndications: Ascites due to alcoholic cirrhosis (HCC) TAKE 1 TABLET EVERY MORNING 90 tablet [address] (PROTONIX) 40 mg EC tablet TAKE 1 TABLET DAILY 100 tablet 1 025 Active furosemide (LASIX) 40 mg tabletIndications: Nonalcoholic steatohepatitis (SUAREZ) TAKE 2 TABLETS SENIOR PROPERTY MANAGER BEFORE BREAKFAST AND 1 TABLET DAILY WITH DINNER 270 tablet 3 Active ALPRAZolam (XANAX) 1 mg tablet TAKE [...] a day for 5 days 10 tablet 025 2024 Active Problems Problem Noted Date Diagnosed [...] vitamins Assessment & Plan (09/03/2024 1:44 PM QUALITY ASSURANCE SPECIALIST): She reports worsening diarrhea over last several [...] standpoint for surgical intervention. Appreciate Dr. Tremaine Alilson's recommendations. Assessment & Plan (05/06/2022 8:35 AM CDT): See Umbilical Hernia Umbilical hernia without obstruction and without gangrene 03/23/2022 Overview (03/23/2022): Added automatically from request for surgery [id number] Assessment & Plan (08/03/2024 8:23 AM CDT): History of repair, likely resulting in mass she is feeling now Will check US Assessment & Plan (05/08/2022 11:31 AM CDT): OR 05/05 (Bochicchio): lap assisted primary repair of LLQ port [...] 10/22/2019 Assessment & Plan (11/26/2019 8:54 AM QUALITY ASSURANCE SPECIALIST): Referral cardio CAROLYNE on CPAP 10/19/2019 Assessment & Plan (12/04/2019 1:29 PM QUALITY ASSURANCE SPECIALIST): Patient has hx of CAROLYNE, on CPAP -continue home CPAP settings on NPPV Assessment & Plan (12/04/2019 1:03 PM QUALITY ASSURANCE SPECIALIST): -continue home nocturnal cpap Assessment & Plan (10/19/2019 3:35 AM QUALITY ASSURANCE SPECIALIST): CPAP - does not known home settings [...] monitor Assessment & Plan (09/01/2023 6:55 PM QUALITY ASSURANCE SPECIALIST): She understands the importance of ongoing/long-term abstinence. A return to heavy drinking would clearly lead to additional liver injury and decompensation. Assessment & Plan (05/15/2020 7:04 PM CDT): She understands the importance of ongoing alcohol abstinence. A return to drinking will likely result in further deterioration of liver function and even from liver failure. Assessment & Plan (12/07/2019 8:56 AM QUALITY ASSURANCE SPECIALIST): Encourage patient to stay alcohol free Assessment & Plan (10/29/2019 12:50 PM QUALITY ASSURANCE SPECIALIST): Counseled pt again she needs to avoid [...] medications Assessment & Plan (10/29/2019 12:52 PM QUALITY ASSURANCE SPECIALIST): Improved. MARGAUX (generalized anxiety disorder) 03/26/2016 Assessment [...] psych Assessment & Plan (12/04/2019 1:28 PM QUALITY ASSURANCE SPECIALIST): Patient has a hx of panic attacks and anxiety. Has home regimen of wellbutrin 75mg nightly, xanax 1mg nightly prn, and klonopin 1mg BID prn -continue wellbutrin, xanax, klonopin Assessment & Plan (12/02/2019 11:50 PM QUALITY ASSURANCE SPECIALIST): -hold bupropion 75 daily in s/o hyponatremia given decreased sz threshold side effect Assessment & Plan (10/19/2019 3:34 AM QUALITY ASSURANCE SPECIALIST): Home regimen: xanax 1mg po BID PRN [...] 2015 Assessment & Plan (09/03/2024 1:41 PM QUALITY ASSURANCE SPECIALIST): She is currently doing well in setting [...] labs Assessment & Plan (11/30/2023 9:48 AM QUALITY ASSURANCE SPECIALIST): Monitor liver function Assessment & Plan (09/01/2023 6:54 PM QUALITY ASSURANCE SPECIALIST): Decompensated based on a history of ascites [...] specialist Assessment & Plan (09/06/2022 10:30 AM QUALITY ASSURANCE SPECIALIST): MELD-Na was 15 from post-op labs. Last [...] today. Assessment & Plan (10/06/2021 12:18 PM QUALITY ASSURANCE SPECIALIST): Contineu to follow with liver Assessment & [...] follow No longer drinking and hasnt since Assessment & Plan (12/07/2019 8:55 AM QUALITY ASSURANCE SPECIALIST): Followed by specialist. Continue current meds Assessment & Plan (11/26/2019 8:53 AM QUALITY ASSURANCE SPECIALIST): Continue to avoid all alcohol. F/u with Dr. Barrios Assessment & Plan (10/29/2019 12:51 PM QUALITY ASSURANCE SPECIALIST): Pt is being monitored by Dr. Barrios. [...] 04/04/2023 11/30/2023 Edema of left lower leg 10/06/2021 04/11/2021 Assessment & Plan (10/06/2021 12:20 PM QUALITY ASSURANCE SPECIALIST): From surgery and her poor venous flow on top of known cirrhosis Doppler negative in OR yesterday Will follow-up with surgery tomorrow Advised to keep elevated and wrapped when walking or moving around Colon polyps 05/21/2021 08/03/2024 Overview (05/21/2021): Added automatically from request for surgery [id number] Assessment & Plan (03/14/2023 11:05 AM CDT): Pt with 3 polyps removed in 2018, was planned for repeat in 3-5 years. She had attempted colonoscopy 06/2021 with inadequate prep. - Ambulatory referral made for Colonoscopy Assessment & Plan (09/06/2022 10:33 AM QUALITY ASSURANCE SPECIALIST): Pt with 3 polyps removed in 2018, was planned for repeat in 3-5 years. She had attempted colonoscopy 06/2021 with inadequate prep. - We will discuss with patient about scheduling colonoscopy in 2022. Thoracic back pain 12/05/2019 Assessment & Plan (04/04/2024 10:27 AM CDT): Increasing oxycodone dose Assessment & Plan (12/05/2019 3:48 PM QUALITY ASSURANCE SPECIALIST): Patient endorsed back pain as chief complaint at OSH. OSH CT revealed pars defects of L5 with L5-S1 spondylolisthesis, severe bilateral neuroforaminal narrowing is suspected.Pain has improved since transfer to [facility]. -patient advised to f/u with PCP Fever 12/02/2019 02/02/2022 Assessment & Plan (12/04/2019 1:33 PM QUALITY ASSURANCE SPECIALIST): Patient had fever 102 at OSH. No leukocytosis. S/p ceftriaxone 1g daily x3 days. Minimal ascites on CT. No further fevers. -dsc CTX Assessment & Plan (12/04/2019 1:05 PM QUALITY ASSURANCE SPECIALIST): H/o SBP. Pt had T 102 at OSH, no leukocytosis. Had CTX x 3 or more days. - d/c CTX Heart murmur 11/26/2019 11/30/2023 Assessment & Plan (11/26/2019 8:54 AM QUALITY ASSURANCE SPECIALIST): Referral to cardio. Need echo. Change in heart murmur BMI 24.0-24.9, adult 10/29/2019 024 Assessment & Plan (2020 8:31 AM QUALITY ASSURANCE SPECIALIST): Weight is well controlled Assessment & Plan (10/29/2019 12:51 PM QUALITY ASSURANCE SPECIALIST): Educated patient on healthy diet/exercise plan. Exercise 150min-300min per week of moderate intensity. Diet: good, healthy protein (eggs, nuts, peanut butter, chicken, fish, turkey, less pork/beef), lots of vegetables, less carbohydrates and less sugar. Normocytic anemia 10/19/2019 08/03/2024 Assessment & Plan (04/21/2020 8:20 AM CDT): Continue follow-up with Hem/Onc Assessment & Plan (10/19/2019 6:37 AM QUALITY ASSURANCE SPECIALIST): - Hgb 7 --> 6.7; baseline 7-8. [...] 11.5 Assessment & Plan (12/07/2019 8:56 AM QUALITY ASSURANCE SPECIALIST): Patient will repeat labs on Tuesday or Tuesday. Patient will be referred to hematology for further evaluation and monitoring Assessment & Plan (11/26/2019 8:54 AM QUALITY ASSURANCE SPECIALIST): Recheck labs Diarrhea 06/29/2018 02/12/2019 Overview (06/29/2018): Added automatically from request for surgery [id number] Assessment & Plan (09/03/2024 1:43 PM QUALITY ASSURANCE SPECIALIST): She reports worsening diarrhea over last several [...] 24 Assessment & Plan (09/01/2023 6:56 PM QUALITY ASSURANCE SPECIALIST): Grade 1 on previous EGD; now on beta-mattie therapy; no need for follow-up endoscopic surveillance. Vitamin D deficiency 10/07/2017 025 Assessment & Plan (2020 8:32 AM QUALITY ASSURANCE SPECIALIST): Continue supplement Portal hypertension 01/23/2016 04/04/20 24 Assessment & Plan (05/06/2022 8:43 AM CDT): Home meds: Cont Nadolol 10mg every day Assessment & Plan (11/26/2019 8:54 AM QUALITY ASSURANCE SPECIALIST): Referral cardio Encounters Date Type Department Care Team Description 02/01/2025 9:05 AM CDT Lab [facility] Medical Office Building [address] [place] [address] Alcoholic cirrhosis of liver with ascites (HCC); Preventative health care; Pancytopenia (HCC) 02/01/2025 8:30 AM CDT Office Visit [facility] [address] [place] [phone] Pradeep Greco Jr., MD Acute non-recurrent maxillary [...] - 12/30/2024 11:59 PM CDT Hospital Encounter [facility] MRI [address] [place] [address] Radiculopathy, lumbar region Discharge Disposition: Discharge to home or self care from Last 3 Months Immunizations Immunization Administration Dates Next Due Influenza, Unspecified 08/24/2023,2022(Deferred: Patient Refused),08/24/2022 PPD TEST 02/14/2023 Tdap 12/29/2023,03/27/2016 Surgical History Surgery Date Site/Laterality Comments PA BIOPSY LIVER NEEDLE PERCUTANEOUS 10/24/2015 - 10/23/2016 PA EXC CYST/ABERRANT BREAST TISSUE OPEN 1/> LESION 10/24/2012 - 10/23/2013 benign CHOLECYSTECTOMY 10/24/2010 - 10/23/2011 POLYPECTOMY US ABDOMEN COMPLETE W LIVER DOPPLER (C) 10/19/2019 Right PARACENTESIS 09/23/2019 - 10/23/2019 HERNIA REPAIR x 2 naval and left hip BREAST BIOPSY 05/09/2013 Left US GUIDED BIOPSY LIVER 12/25/2015 N/A COLONOSCOPY HX OF POLYPS BONE MARROW BIOPSY 06/03/2021 HIP SURGERY Left KNEE SURGERY Left FL UPPER GI AIR CONTRAST W KUB 11/17/2023 Bilateral FL UPPER GI AIR CONTRAST W KUB 02/28/2024 Bilateral HIP ARTHROPLASTY Right LASIK 2018 FRACTURE SURGERY JOINT REPLACEMENT 2021 CATARACT EXTRACTION Medical History Medical History Date Comments GERD (gastroesophageal reflux disease) Depression, major, recurrent, moderate (HCC) Insomnia due to other mental disorder 01/05/2019 Iron deficiency anemia 01/05/2019 Portal hypertension (HCC) 01/23/2016 Varices, esophageal (HCC) 01/30/2018 Vitamin D deficiency 10/07/2017 History of transfusion Essential hypertension 12/23/2023 Anxiety 03/26/2016 Family History Medical History Relation Name Comments Diabetes Father Liu Heart failure Father Liu Family history of congestive heart failure - (Added by TW Conv)/Family history of congestive heart failure - (Added by TW Conv) Parkinsonism Maternal Grandfather Alzheimer's disease Maternal Grandmother Kiara Heart disease Maternal Grandmother Kiara Breast cancer Mother Charlotte diagnosed at 5 0 yo Cancer Mother Charlotte Epilepsy Mother Charlotte Heart attack Mother Charlotte Family history of myocardial infarction - (Added by TW Conv)/Family history of myocardial infarction - (Added by TW Conv) Relation Name Status Comments Father Liu Alive Maternal Grandfather Maternal Grandmother Kiara Mother Charlotte Alive Sister Alive Social History Tobacco Use Types Packs/Day Years Used Date Smoking Tobacco: Never Smokeless Tobacco: Never Tobacco Cessation:Counseling Given: Not Answered Alcohol Use Standard Drinks/Week Comments Not Currently 0 (1 standard drink = 0.6 oz pure alcohol) Previously dependent, last had a glass of champagne Thanksgiving 2018 AUDIT-C Answer Date Recorded Q1: How often [...] on file Legal Sex Female 9:20 AM QUALITY ASSURANCE SPECIALIST Gender Identity Not on file Sexual Orientation Not on file Obstetrics History Para Term AB IAB SAB Ectopic Multiple Livin g Live Births 2 2 2 Date Outcome GA Total Labor Labor/2nd/3rd Weight Sex Type Anes PTL Negar A1 A5 Name Clin Term Term Last Filed Vital Signs Vital Sign Reading [...] 02/01/2025 8:19 AM CDT Plan of Treatment Health Maintenance Due Date Last Done Comments Hepatitis B Screening 1983 Pneumococcal vaccine <65 (1 of 2 - PCV) 1984 Zoster Vaccine (1 of 2) 2015 Cervical Cancer Screening 05/31/2021 05/31/2020 Breast Cancer Screening-Mammogram 05/09/2024 05/09/2023, 01/08/2022, 07/16/2020, Additional history exists Depression Screening 02/01/2026 02/01/2025, 09/28/2024, 08/03/2024, Additional history exists Regular Well Visit/Exam 18-64 02/01/2026, 01/28/2023, 12/22/2021, Additional history exists Colon Cancer Screening-Colonoscopy 09/19/2027 09/19/2024, 07/03/2021, 07/13/2018 DTaP/Tdap/Td Vaccine (3 - Td or Tdap) 12/28/2033 12/29/2023, 03/27/2016 Hepatitis C Screening Completed 12/22/2015, 014 Influenza Vaccine Discontinued 08/24/2023, 08/24/2022 Colon Cancer Screening-CT Colonography Discontinued 09/19/2024, 07/03/2021, 07/13/2018 Colon Cancer Screening-DNA Stool Discontinued 09/19/2024, 07/03/2021, 07/13/2018 Colon Cancer Screening-FIT Discontinued 09/19, 07/03/2021, 07/13/2018, Additional history exists Colon Cancer Screening-Sigmoidoscopy Discontinued 09/19/2024, 07/03/2021, 07/13/2018 Medical Devices Implanted Type Area Clinical Care Coordinator Device Identifier Shelf Expiration Date Model / [...] Radiculopathy, lumbar region COLONOSCOPY 09/19/2024 11:14 AM QUALITY ASSURANCE SPECIALIST SCREENING MAMMOGRAM BILATERAL W SOTERO Schedule Routine, Read Routine (OP Routine) 05/09/2023 2:17 PM CDT Preventative health care HM PAP SMEAR WITH HPV Routine 05/31/2020 HEPATITIS PANEL, ACUTE Routine 12/22/2015 9:48 AM QUALITY ASSURANCE SPECIALIST from Last 3 Months or Most Recently [...] was last reviewed 2021. Testing performed by: [facility], [address] [place] [address]., [address] Blood 02/01/2025 9:26 AM CDT 02/01/2025 10:47 AM CDT us Pradeep Greco Jr., MD LAB BLOOD ORDERABLES Final Result [facility] [id number] [facility] Department [place] [address] * (ABNORMAL) Differential, auto (02/01/2025 9:26 AM CDT) Neutrophil abs 2.24 1.50 - 6.50 K/cumm Comment:Testing performed by : [address], [place]., [address] Imm gran abs 0.01 0.00 - 0.10 K/cumm [facility] Comment:Testing performed by : [address], [place]., [address] Lymphocyte abs 0.41(L) 0.80 - 3.30 K/cumm [facility] Comment:Testing performed by : [address], [place]., [address] Monocyte abs 0.26 0.20 - 0.80 K/cumm [facility] Comment:Testing performed by : [address], [place]., [address] Eosinophil abs 0.05 0.00 - 0.50 K/cumm [facility] Comment:Testing performed by : [address] [address] Basophil abs 0.01 0.00 - 0.10 K/cumm [facility] Comment:Testing performed by : [address] [address] Neutrophil pct 75.2 % [facility] Comment: Interpretive Data Percent cell count reference ranges are not reported, since discordance with absolute values may lead to misinterpretation of CBC data. Current Interpretive Data was last revised on 2018. Testing performed by: [address] [address] Imm gran pct 0.3 % [facility] Comment: Interpretive Data Percent cell count reference ranges are not reported, since discordance with absolute values may lead to misinterpretation of CBC data. Current Interpretive Data was last revised on 2018. Testing performed by: [address] [address] Lymphocyte pct 13.8 % [facility] Comment: Interpretive Data Percent cell count reference ranges are not reported, since discordance with absolute values may lead to misinterpretation of CBC data. Current Interpretive Data was last revised on 2018. Testing performed by: [address] [address] Monocyte pct 8.7 % [facility] Comment: Interpretive Data Percent cell count reference ranges are not reported, since discordance with absolute values may lead to misinterpretation of CBC data. Current Interpretive Data was last revised on 2018. Testing performed by: [address] [address] Eosinophil pct 1.7 % [facility] Comment: Interpretive Data Percent cell count reference ranges are not reported, since discordance with absolute values may lead to misinterpretation of CBC data. Current Interpretive Data was last revised on 2018. Testing performed by: [address] [address] Basophil pct 0.3 % [facility] Comment: Interpretive Data Percent cell count reference ranges are not reported, since discordance with absolute values may lead to misinterpretation of CBC data. Current Interpretive Data was last revised on 2018. Testing performed by: [address] [address] Blood 02/01/2025 9:26 AM CDT 02/01/2025 10:47 AM CDT Pradeep Greco Jr., MD LAB BLOOD ORDERABLES Final Result Performing Organization Address City/[facility] Co de Phone Number [address] [place] [address] * Thyroid Function [place] (02/01/2025 9:26 AM CDT) TSH 2.21 0.30 - 4.20 mcIUnit/mL Comment:Testing performed by : [address] [address] Blood 02/01/2025 9:26 AM CDT 02/01/2025 10:47 AM CDT Pradeep Greco Jr., MD LAB BLOOD ORDERABLES Final Result Performing Organization Address City/[facility]/ZIP Co de Phone Number [address] [place] [address] * (ABNORMAL) CBC with auto differential (02/01/2025 9:26 AM CDT) [facility] Signature WBC 2.98(L) 3.80 - 9.90 K/cumm Comment:Testing performed by : [address], [address] Hgb 7.2(L) 11.9 - 15.5 g/dL [facility] Comment:Testing performed by : [address], [address] Hct 26.7(L) 35.6 - 45.5 % [facility] Comment:Testing performed by : [address], [address] Plt 95(L) 150 - 400 K/cumm [facility] Comment:Testing performed by : [address], [address] MPV Not Measured 9.1 - 12.3 fL [facility] Comment:Testing performed by : [address], [address] RBC 3.93 3.90 - 5.20 M/cumm [facility] Comment:Testing performed by : [address], [address] MCV 67.9(L) 81.3 - 96.4 fL [facility] Comment:Testing performed by : [address], [address] MCH 18.3(L) 27.1 - 33.3 pg [facility] Comment:Testing performed by : [address], [address] MCHC 27.0(L) 32.3 - 35.7 g/dL [facility] Comment:Testing performed by : [address], [address] RDW CV 19.3(H) 11.1 - 14.9 % [facility] Comment:Testing performed by : [address], [address] RDW SD 46.3 35.7 - 48.1 fL [facility] Comment:Testing performed by : [address], [address] NRBC abs 0.00 0.00 - 0.01 K/cumm [facility] Comment:Testing performed by : [facility], [address] [place] [address], [place]., [address] Blood 02/01/2025 9:26 AM CDT 02/01/2025 10:47 AM CDT Pradeep Greco Jr., MD LAB BLOOD ORDERABLES Final Result Performing Organization Address [facility] de Phone Number [place] [phone] [facility] [place] [address] * Hepatitis B surface antibody (immune status) [...] 9:26 AM CDT 02/01/2025 12:40 PM CDT Pradeep Greco Jr., MD LAB MICROBIOLOGY - NERAL ORDERABLES Final Result Performing Organization Address [facility] de Phone Number [place] [address] [facility] [place] [address] * Lipid panel (02/01/2025 9:26 AM CDT) [...] last revised on 2018. Testing performed by: [address] [address] Triglycerides 46 <=149 mg/dL [facility] Comment: Interpretive [...] last revised on 2018. Testing performed by: [address] [address] HDL 64 >=40 mg/dL [facility] Comment: Interpretive [...] last revised on 2018. Testing performed by: [address] [address] LDL, calculated 40 <=129 mg/dL [facility] Comment: Interpretive Data Ages < or = 19 years Acceptable: <110 mg/dL Borderline high: 110-129 mg/dL High: >or= 130 mg/dL Ages > or = 20 years Optimal: <100 mg/dL Near optimal: 100-129 mg/dL Borderline high: 130-159 mg/dL High: >160 mg/dL Calculated using the Drew LDL-C estimating equation. This equation was implemented [...] last revised on 2024. Testing performed by: [address] [address] Non-HDL Cholesterol 51 mg/dL [facility] Comment: Interpretive Data Ages [...] last revised on 2018. Testing performed by: [address] [address] Chol/HDL ratio 2 [facility] Comment:Testing performed by : [address] [address] Blood 02/01/2025 9:26 AM CDT 02/01/2025 10:47 AM CDT us Pradeep Greco Jr., MD LAB BLOOD ORDERABLES Final Result BECKIRHETT NUNE[facility] [address] [facility] [place] [address] * (ABNORMAL) Comprehensive metabolic panel (02/01/2025 9:26 AM CDT) [facility] Sodium 138 135 - 145 mmol/L Comment:Testing performed by : [address] [address] Potassium, pl 3.9 3.3 - 4.9 mmol/L [facility] Comment:Testing performed by : [address] [address] Chloride 101 97 - 110 mmol/L [facility] Comment:Testing performed by : [address], [place]., [address] CO2 26 22 - 32 mmol/L [facility] Comment:Testing performed by : [address], [place]., [address] Anion gap 11 2 - 15 mmol/L [facility] Comment:Testing performed by : [address] [address] BUN 13 6 - 25 mg/dL [facility] Comment:Testing performed by : [address], [place]., [address] Creatinine 0.78 0.60 - 1.10 mg/dL [facility] Comment:Testing performed by : [address] [address] Glucose 144 70 - 199 mg/dL [facility] Comment: Interpretive Data Fasting glucose >/= 126 [...] classification and Diagnosis of Diabetes Diabetes Care 2021; 46: S19-S40. Current interpretive data was last revised 2022. Testing performed by: [address] [address] Calcium 9.1 8.5 - 10.3 mg/dL [facility] Comment:Testing performed by : [address] [address] Bilirubin, total 1.2 0.1 - 1.2 mg/dL [facility] Comment:Testing performed by : [address] [address] Protein, pl 7.1 6.5 - 8.5 g/dL [facility] Comment:Testing performed by : [address] [address] Albumin 3.8 3.5 - 5.0 g/dL [facility] Comment:Testing performed by : [address] [address] Alk phos 209(H) 40 - 130 Units/L [facility] Comment:Testing performed by : [address] [address] ALT 26 7 - 45 Units/L [facility] Comment:Testing performed by : [address] [address] AST 44 10 - 45 Units/L [facility] Comment:Testing performed by : [address] [address] Blood 02/01/2025 9:26 AM CDT 02/01/2025 10:47 AM CDT Pradeep Greco Jr., MD LAB BLOOD ORDERABLES Final Result [place] [address] [facility] Department of Laboratories [place], [place] [id number] * MRI Thoracic Spine WO Contrast (12/30/2024 [...] 9:12 AM - Electronically signed by Tarun KHAN T: Report ID: [id number] Reading Location: [id number] Procedure Note Tarun Welch MD - 12/31/2024 [...] 9:12 AM - Electronically signed by Tarun KHAN T: Report ID: [id number] Reading Location: [id number] us Diana WHARTON IM MRI PROCEDURES Final R esult * Colonoscopy (09/19/2024 11:14 AM QUALITY ASSURANCE SPECIALIST) Anatomical Region Laterality Modality Other Narrative Procedure [...] The scope was passed under direct vision.The [id number] endoscope was introduced through the anus and [...] 0 Note Initiated On: 09/19/2024 11:14 AM Kelsi Hurtado MD ENDOSCOPY PROCEDURES Final Res [...] age 40, based on guidelines of the [employer] [employer] (ACR Practice Parameter for the Performance of Screening and Diagnostic Mammography) and [employer]. For women [...] breast on mammogram. Pradeep Greco Jr., MD IMG MAMMO PROCEDURES Final Result * HM PAP SMEAR WITH HPV (05/31/2020) Scribed Pap Smear w/HPV Normal us Historical Provider HEALTH MAINTENANCE Final Result * Hepatitis panel, acute (12/22/2015 9:48 AM QUALITY ASSURANCE SPECIALIST) HepBsAg NONREACT NONREACTIVE 12/22/2015 11:22 AM [employer] HISTORICAL RESULTS Comment: Siemens CentaurXP using ZORA (chemiluminescent immunoassay) technology. NONREACTIVE: IgM antibodies to Hepatitis B Surface antigen not detected. REACTIVE: IgM antibodies to Hepatitis B Surface antigen detected. Reactive results will be confirmed by neutralization testing. HBsAb qn < 3.10 mIU/mL 12/22/2015 11:09 AM [employer] HISTORICAL RESULTS Comment: Siemens CentaurXP using ZORA (chemiluminescent immunoassay) technology. 9.99 IU/L or less.....NONREACTIVE: IgM antibodies to Hepatitis B Surface antibody are not detected. 10.00 IU/L or greater..REACTIVE: IgM antibodies to Hepatitis B Surface antibody are detected. Hep B core IgM NONREACT NONREACTIVE 6 11:48 AM QUALITY ASSURANCE SPECIALIST [employer] HISTORICAL RESULTS Comment: Siemens CentaurXP using ZORA (chemiluminescent immunoassay) technology. NONREACTIVE: IgM antibodies to Hepatitis B Core antigen not detected. EQUIVOCAL: IgM antibodies to Hepatitis B Core antigen may or may not be present. Obtain a new specimen and retest. REACTIVE: IgM antibodies to Hepatitis B Core antigen detected. Hep A IgM NONREACT NONREACTIVE 12/22/2015 11:50 AM [employer] HISTORICAL RESULTS Comment: Siemens CentaurXP using ZORA (chemiluminescent immunoassay) technology. NONREACTIVE: IgM antibodies to Hepatitis A not detected. This does not exclude possibility of exposure to Hepatitis A or early acute infection. EQUIVOCAL:IgM antibodies to Hepatitis A may or may not be present. Suggest recollection and retest. REACTIVE: Antibodies to Hepatitis A detected. Hep C Ab NONREACT NONREACTIVE 12/22/2015 11:48 AM [employer] HISTORICAL RESULTS Comment: Siemens CentaurXP using ZORA [...] to Hepatitis C detected. 12/22/2015 9:48 AM QUALITY ASSURANCE SPECIALIST 12/22/2015 10:25 AM QUALITY ASSURANCE SPECIALIST Jj Hurtado MD LAB MICROBIOLOGY - GENERAL ORDERABLES Final Result [facility] HISTORICAL RESULTS from Last 3 Months or Most Recently Relevant to Health Maintenance Insurance [facility] Advance Directives For more information, please contact: [phone] Documents on File Type Date Recorded Patient Locomotive Operator Expl anation Power of Retail Reset Merchandiser 12/28/2022 9:23 AM * Full Code (Latest [...] 9:44 AM 10/02/2019 3:41 PM Care Teams Etcher Aircraft Relationship Specialty Start Date End Date Pradeep Greco Jr., MD PCP - General Internal Medicine 01/22/20 Jalen Bell MD Medical Oncologist/Motor Power Connector Hematology and Oncology 03/04/20
[2025-02-27 09:39] LABS: Basophils Percent Auto 0.8 % (0.2-1.2); Eosinophils Absolute Auto 0.1 K/mm3 (0-0.3); Eosinophils Percent Auto 2.3 % (0-4.4); Hematocrit 25.7 % (37.0-47.0); Immature Platelet Fraction Pct 6.9 % (0.9-11.2); Lymphocytes Absolute Auto 0.64 K/mm3 (0.9-3.2); Lymphocytes Percent Auto 24.4 % (18.3-44.2); Mean Corpuscular HGB Conc 26.5 g/dl (32-36); Mean Corpuscular Hemoglobin 18.3 pg (26-34); Mean Corpuscular Volume 69.1 fl (80-100); Monocytes Absolute Auto 0.3 K/mm3 (0.1-0.6); Monocytes Percent Auto 9.5 % (2.6-8.5); Neutrophils Absolute Auto 1.7 K/mm3 (1.3-6.7); Platelet Count Result 81 k/mm3 (150-375); Red Blood Count 3.72 M/mm3 (4.2-5.4); Red Cell Distribution Width 19.1 % (11.5-14.5); White Blood Count 2.6 K/mm3 (4.5-10.0)
[2025-02-27 09:47] LABS: Add Urine Microscopic? YES; Appearance Urine Clear (Clear); Bacteria Urine None Seen /hpf; Bilirubin Urine Negative (Negative); Blood Urine Negative (Negative); Color Urine Yellow (Yellow); Glucose Urine UA Negative (Negative); Ketones Urine Negative (Negative); Leukocyte Esterase Ur 2+ LEU/UL (Negative); Nitrate Urine Negative (Negative); Non Pathogenic Casts 0-2; Protein Urine Negative (Negative); RBC Urine 0-2 /hpf (0-2); Specific Grav Ur 1.008 (1.001-1.035); Squamous Epithelial Cell Urine Occasional /hpf (Few); Urobilinogen Urine 0.2 mg/dL (<2.0)
[2025-02-27 09:57] LABS: Alanine Aminotransferase 25 U/L (6-35); Albumin Level 3.8 g/dL (3.5-5.1); Alkaline Phosphatase 198 U/L (38-126); Anion Gap 6 mmol/L (4-12); Aspartate Amino Transferase 45 U/L (14-36); Bilirubin,Total 1.2 mg/dL (0.2-1.3); Blood Urea Nitrogen 18 mg/dL (7-17); CRP 0.8 mg/dL (<1.0); Calcium 8.2 mg/dL (8.4-10.2); Carbon Dioxide 30 mmol/L (22-30); Chloride 99 mmol/L (98-107); Estimated Glomerular Filt Rate > 60; Glucose 112 mg/dL (65-110); Potassium 3.8 mmol/L (3.4-5.0); Sodium 135 mmol/L (137-145)
[2025-02-27 10:24] LABS: Anisocytosis 1+; Schistocytes None Seen
[2025-02-27 10:25] LABS: Hypochromasia 2+; Platelet Estimate Decreased (Adequate)
[2025-02-27 11:23] LABS: Hemoglobin 6.8 g/dL (12.0-15.0)
[2025-02-27 11:51] LABS: Erythrocyte Sedimentation Rate 19 mm/hr (0-20)
== END 2025-02-27 08:59 | disposition home or self-care (01) ==
LOC: ANHLAB 09:07
PROVIDERS: Visit Provider Physician Assistant
DX: Z01.818 Encounter for other preprocedural examination (principal)
CPT/HCPCS: 36415; 80053; 81001; 85025; 85055; 85652; 86140; 93005